=== PATIENT | male | born 1955 | race Caucasian/White ===

== ENCOUNTER 2017-04-21 11:55 | Inpatient (IN) | payer BC ==
[2017-04-21] MEDS ORDERED: RX INFO: IV CONTRAST WAS GIVEN 1 EACH MISC MISCELLANE PRN ×2 (13:00→18:23)
--- NOTE | 2017-04-21 13:20 | ED ---
Headache HPI - General Source: RN notes reviewed Mode of arrival: ambulatory Limitations: no limitations <Zack Montgomery - Last Filed: 04/21/17 14:52> <Brodie Haynes - Last Filed: 04/22/17 10:32> - General Chief Complaint: Headache Stated Complaint: Blurry Vision/Headache Time Seen by Provider: 04/21/17 12:48 - History of Present Illness Initial Comments: This a 62-year-old male presents emergency Department with chief complaint of headache, blurred vision. Patient states he's had a headache for last 2 weeks alleviated with any medication. He states it feels like a sinus headache. Patient states he woke up today and has blurred vision. He states he states he sees 2 of everything next to each Other. He states she's never had pain like this in the past. 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 Crews. Patient states that this was found based on the CT by Dr. Rouse. Patient denies any nausea, vomiting, diarrhea or constipation. Patient also complains of neck and throat swelling in which she believes are lymph nodes. He states he has not called his oncologist know what the symptoms because he believes that he does have some sinus infection. (Zack Montgomery) - Related Data Home Medications Medication Instructions Recorded Confirmed ALPRAZolam [Xanax] 0.5 mg PO HS 04/21/17 04/21/17 Aspirin 325 mg PO DAILY 04/21/17 04/21/17 FLUoxetine HCL [PROzac] 40 mg PO BID 04/21/17 04/21/17 Lisinopril [Zestril] 10 mg PO BID 04/21/17 04/21/17 Metoprolol Tartrate [Lopressor] 25 mg PO DAILY 04/21/17 04/21/17 amLODIPine [Norvasc] 10 mg PO DAILY 04/21/17 04/21/17 Allergies Allergy/AdvReac Type Severity Reaction Status Date / Time amiodarone Allergy Rash/Hives/ Verified 04/21/17 12:45 SWELLING Review of Systems ROS Other: All systems not noted in ROS Statement are negative. <Zack Montgomery - Last Filed: 04/21/17 14:52> ROS Other: All systems not noted in ROS Statement are negative. <Brodie Haynes N - Last Filed: 04/22/17 10:32> ROS Statement: Those systems with pertinent positive or pertinent negative responses have been documented in the HPI. 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 History of Any Multi-Drug Resistant Organisms: None Reported Past Surgical History: Coronary Bypass/CABG, Tonsillectomy Additional Past Surgical History / Comment(s): valve replacement, hand surgery Past Psychological History: Anxiety, Depression Smoking Status: Former smoker Past Alcohol Use History: Rare Past Drug Use History: None Reported <Zack Montgomery - Last Filed: 04/21/17 14:52> - Past Family History Father Family Medical History: Coronary Artery Disease (CAD), Hyperlipidemia Additional Family Medical History / Comment(s): cabg Mother Family Medical History: Hypertension Additional Family Medical History / Comment(s): enlarged heart <Brodie Haynes N - Last Filed: 04/22/17 10:32> General Exam Limitations: no limitations General appearance: alert, in no apparent distress Head exam: Present: atraumatic, normocephalic, normal inspection Eye exam: Present: normal appearance, PERRL, EOMI, other (Cranial nerve palsy on the left). Absent: scleral icterus, conjunctival injection, periorbital swelling ENT exam: Present: normal exam, normal oropharynx, mucous membranes moist, TM's normal bilaterally, normal external ear exam Neck exam: Present: normal inspection, full ROM. Absent: tenderness, meningismus, lymphadenopathy Respiratory exam: Present: normal lung sounds bilaterally. Absent: respiratory distress, wheezes, rales, rhonchi, stridor Cardiovascular Exam: Present: regular rate, normal rhythm, normal heart sounds. Absent: systolic murmur, diastolic murmur, rubs, gallop, clicks Neurological exam: Present: alert, oriented X3, CN II-XII intact, reflexes normal, other (Some difficulty with [id number]). Absent: motor sensory deficit Skin exam: Present: warm, dry, intact, normal color. Absent: rash <Zack Montgomery - Last Filed: 04/21/17 14:52> Course <Zack Montgomery - Last Filed: 04/21/17 14:52> <Brodie Haynes - Last Filed: 04/22/17 10:32> Vital Signs 04/21/17 04/21/17 12:31 14:17 Temperature 98.7 F Pulse Rate 104 H 88 Respiratory 18 18 Rate Blood Pressure 106/78 149/89 O2 Sat by Pulse 99 98 Oximetry - Reevaluation(s) Reevaluation #1: 04/21/17 13:19 Patient states that he has horizontal diplopia with notable cranial nerve palsy (Zack Montgomery) Medical Decision Making - Lab Data Result diagrams: 04/21/17 13:13 04/21/17 12:59 <Zack Montgomery - Last Filed: 04/21/17 14:52> - Lab Data Result diagrams: 04/21/17 13:13 04/21/17 12:59 <Brodie Haynes - Last Filed: 04/22/17 10:32> - Medical Decision Making 62-year-old male presenting with 2 weeks headache and one-day history double vision. Patient has a sixth nerve pulse 80 on the left. No proptosis. No chemosis. Patient is otherwise well-appearing. CT is obtained, does show large nasopharyngeal mass. He has history of nasopharyngeal cancer, completed radiation and chemotherapy approximately 3 months ago. Patient will be admitted for further evaluation and treatment of suspected worsening head and neck cancer. Neurology will be placed on consult for neuro deficit. Case is discussed with Dr. Crews. Patient will be admitted to internal medicine. ( Brodie Haynes) - Lab Data Lab Results 04/21/17 04/21/17 Range/Units 12:59 13:13 WBC 9.0 (3.8-10.6) k/uL RBC 4.32 (4.30-5.90) m/uL Hgb 13.2 (13.0-17.5) gm/dL Hct 43.1 (39.0-53.0) % MCV 99.9 (80.0-100.0) fL MCH 30.5 (25.0-35.0) pg MCHC 30.5 L (31.0-37.0) g/dL RDW 13.8 (11.5-15.5) % Plt Count 331 (150-450) k/uL Neutrophils % 86 % Lymphocytes % 5 % Monocytes % 7 % Eosinophils % 1 % Basophils % 0 % Neutrophils # 7.7 (1.3-7.7) k/uL Lymphocytes # 0.4 L (1.0-4.8) k/uL Monocytes # 0.6 (0-1.0) k/uL Eosinophils # 0.1 (0-0.7) k/uL Basophils # 0.0 (0-0.2) k/uL Sodium 133 L (137-145) mmol/L Potassium 5.1 (3.5-5.1) mmol/L Chloride 99 (98-107) mmol/L Carbon Dioxide 22 (22-30) mmol/L Anion Gap 12 mmol/L BUN 12 (9-20) mg/dL Creatinine 1.30 H (0.66-1.25) mg/dL Est GFR (MDRD) Af Amer >60 (>60 ml/min/1.73 sqM) Est GFR (MDRD) Non-Af 56 (>60 ml/min/1.73 sqM) Glucose 117 H (74-99) mg/dL Calcium 10.2 (8.4-10.2) mg/dL Total Bilirubin 0.7 (0.2-1.3) mg/dL AST 28 (17-59) U/L ALT 25 (21-72) U/L Alkaline Phosphatase 89 (38-126) U/L Total Protein 7.4 (6.3-8.2) g/dL Albumin 4.3 (3.5-5.0) g/dL Disposition Time of Disposition: 14:52 <Zack Montgomery - Last Filed: 04/21/17 14:52> <Brodie Haynes - Last Filed: 04/22/17 10:32> Clinical Impression: Nasopharyngeal mass, Headache, Diplopia Disposition: ADMITTED IP TO THIS HOSP Condition: Fair
[2017-04-21 13:25] LABS: Basophils % (A) 0 %; CHCM 32.2; Eosinophils # (A) 0.1 k/uL (0-0.7); Eosinophils % (A) 1 %; HCT 43.1 % (39.0-53.0); HDW 2.14; HGB 13.2 gm/dL (13.0-17.5); Luc # (Auto) 0.08; Luc % (Auto) 1; Lymphocytes # (A) 0.4 k/uL (1.0-4.8); Lymphocytes % (A) 5 %; MCH 30.5 pg (25.0-35.0); MCHC 30.5 g/dL (31.0-37.0); MCV 99.9 fL (80.0-100.0); Mean Platelet Volume 7.4; Monocytes # (A) 0.6 k/uL (0-1.0); Monocytes % (A) 7 %; Neutrophils # (A) 7.7 k/uL (1.3-7.7); Neutrophils % (A) 86 %; RBC 4.32 m/uL (4.30-5.90); RDW 13.8 % (11.5-15.5); WBC (Perox) 9.58
[2017-04-21 13:38] LABS: ALT 25 U/L (21-72); AST 28 U/L (17-59); Alkaline Phosphatase 89 U/L (38-126); Anion Gap 12 mmol/L; Blood Urea Nitrogen 12 mg/dL (9-20); Calcium 10.2 mg/dL (8.4-10.2); Carbon Dioxide 22 mmol/L (22-30); Chloride 99 mmol/L (98-107); Glucose 117 mg/dL (74-99); Non-African American GFR(MDRD) 56 (>60 ml/min/1.73 sqM); Potassium 5.1 mmol/L (3.5-5.1); Sodium 133 mmol/L (137-145); Total Bilirubin 0.7 mg/dL (0.2-1.3); Total Protein 7.4 g/dL (6.3-8.2)
--- NOTE | 2017-04-21 14:03 | CT ---
EXAMINATION TYPE: CT brain wo con DATE OF EXAM: 04/21/2017 COMPARISON: NONE HISTORY: BANUELOS, double vision, blurred vision, history of squamous cell CA of nasopharynx CT DLP: 999.8 mGycm. Automated Exposure Control for Dose Reduction was Utilized. TECHNIQUE: CT scan of the head is performed without contrast. FINDINGS: There is no acute intracranial hemorrhage, mass effect, or midline shift identified. The ventricles and sulci are within normal limits in size. The globes are intact. Old lacunar injury is seen of the right thalamus of CSF attenuation. Similarly old lacunar injury of the inferior caudate head is seen in the left that is CSF attenuation. Left torus tubarius is enlarged and there is obliteration of the fossa of Rosenmuller with prominent soft tissue in the posterior left nasopharynx likely related to patient's known nasopharyngeal carcin nataly. Heterogenous masslike region measures at least 2.8 x 1.9 cm involving the longus colli musculatu re and eroding into the clivus with soft tissue component expanding the clivus and questionable exten t into the cavernous portion of the left internal carotid artery on series 4 image 9 and 10 as well a s series 3 image 9 and 10. Soft tissue also abuts the basilar artery on these images. Left cavernous sinus thrombosis is possible given the patient's symptoms and the extension of the mass. Additional p osterior extent towards the left jugular vein is noted. Minimal mucosal thickening is seen within the left maxillary sinus. IMPRESSION: 1. No acute intracranial hemorrhage, midline shift or mass effect. 2. Large irregular masslike enhancement involving the posterior left nasopharynx and the fossa of Ros enmuller extending into the longus coli musculature and clivus with concern for extent into the maikel us and cavernous portions of the left internal carotid artery. This also abuts the basilar artery. Gi tito the patient's symptoms cavernous sinus thrombosis is possible. Additional posterior extent toward s the left jugular vein is noted. 3. Old lacunar injuries of the left caudate nucleus and right thalamus.
--- NOTE | 2017-04-21 14:10 | CT ---
EXAMINATION TYPE: CT soft tissue neck w con DATE OF EXAM: 04/21/2017 HISTORY: BANUELOS, double vision, blurred vision, history of squamous cell CA of nasopharynx COMPARISON: CT brain of the same day. CT DLP: 266.2 mGycm. Automated Exposure Control for Dose Reduction was Utilized. TECHNIQUE: CT scan of the neck is performed with IV Contrast, patient injected with 100 mL of Omnipa que 300, axial images are obtained, coronal and sagittal reformatted images are reviewed. FINDINGS: The previously described heterogenous posterior nasopharyngeal mass is difficult to accurately measur e with soft tissue prominence in the posterior nasopharynx involving the left fossa of Rosenmuller an d extending into the left longus coli musculature measuring at least 2.0 x 3.4 cm. There is erosion o f the clivus and erosion of the petrous ridge with an narrowing and focal stenosis caused by impressi on of the mass on the petrous portion and cavernous portion of the left internal carotid artery. This mass also protrudes posteriorly to abut the basilar artery and extends towards the left jugular vein . Phlegmonous changes are seen in the oropharynx with nonenlarged lymph node in the superficial mucos al space and thickening of the prevertebral space. Nonenlarged lymph nodes are also seen of the anter ior and posterior cervical chains of the neck. 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 Moderate centrilobu lar emphysema is seen within the lung apices. There is a 6 mm right apical pulmonary nodule as well a s a 3 mm right upper lobe pulmonary nodule. Multilevel degenerative changes of the cervical spine are moderate. IMPRESSION: 1. Redemonstration of an ill-defined heterogenous left lateral posterior nasopharyngeal mass eroding the clivus and petrous bone and extending into the basilar cistern abutting the basilar artery and na rrowing the petrous portion of the left internal carotid artery and cavernous portion of the left int ernal carotid artery. Venous thrombosis remains a possibility given the patient's symptoms. No arteri al occlusion. 2. Moderate centrilobular emphysematous changes, partially visualized with right upper lobe subcentim eter pulmonary nodules. Metastasis is possible. 3. Phlegmonous changes of the oropharynx, somewhat limiting evaluation for adenopathy. Nonenlarged ly mph nodes are seen of the anterior and posterior cervical chains.
--- NOTE | 2017-04-21 14:35 | CT ---
EXAMINATION TYPE: CT sinus w con DATE OF EXAM: 04/21/2017 COMPARISON: CT soft tissue neck and CT brain of the same date. HISTORY: BANUELOS, double vision, blurred vision, history of squamous cell CA of nasopharynx CT DLP: 599.8 mGycm Automated exposure control for dose reduction was used. CONTRAST: CT scan of the facial bones is performed with IV Contrast, patient injected with 100 mL of Omnipaque 300. TECHNIQUE: CT scan of the sinuses is performed without contrast, axial images are obtained, coronal r eformatted images are also reviewed. FINDINGS: There is better delineation of the posterior nasopharyngeal mass on this examination in com parison to the CT brain and CT soft tissue neck of the same date. However, this mass remains slightly ill-defined with extending from the left posterior nasopharynx, fossa of Rosenmuller, prevertebral s pace, surrounding the proximal carotid into the carotid space, eroding the clivus, extending into the prebasilar cistern, narrowing the petrous portion of the left internal carotid artery and cavernous portion of the left internal carotid artery. In craniocaudal dimension this masses difficult to measu re and appears to extend below the [id number] measuring at least 6.2 cm in craniocaudal dimension on series 7 image 46 and 3.8 cm in transverse dimension as well as at least 2.9 cm in anterior fur mixer operator ior dimension. Contralateral necrotic adenopathy is seen near the prevertebral space with lymph node measuring 9 mm in short axis and central necrosis. The left jugular vein appears diminutive in size o n series 3 image 1 distally. Erosion of the mass is better described on the CT neck and brain of the same day. Scant mucosal thick ening is seen within the maxillary sinuses and inferior polypoid left maxillary 8 mm rounded possible polyp is present. Small amount of fluid is seen within the right mastoid air cells. Right frontal si nus is hypoplastic. Ostiomeatal complexes are patent bilaterally. IMPRESSION: Large multiloculated complex left posterior nasopharyngeal mass with contralateral adenop athy of the head and neck narrowing the posterior oropharynx, rotating the clivus, extending into the basilar cistern with mass effect upon the basilar artery, extending towards the left jugular vein an d narrowing it to approximately causing it to be diminutive in caliber, and eroding the left petrous bone causing impression upon the petrous portion of the left carotid artery and cavernous portion of the left carotid artery. No gross evidence of arterial cavernous sinus thrombosis although venous thr ombosis is a possibility of the cavernous plexus or petrosal sinus. No dilation of the superior ophth almic veins.
[2017-04-21] MEDS ORDERED: ACETAMINOPHEN TAB 325 MG TAB PO PRN (14:53)
[2017-04-21] MEDS ORDERED: LORazepam 2 MG/ML INJ IV PRN (14:53)
[2017-04-21] MEDS ORDERED: NALOXONE 0.4 MG/ML 1 ML VIAL IV PRN (14:53)
[2017-04-21] MEDS ORDERED: HYDROmorphone 0.5 MG/0.5 ML SYRINGE IVP PRN (14:53)
--- NOTE | 2017-04-21 18:23 | P.CONS ---
History of Present Illness - Reason for Consult Consult date: 04/21/17 Recurrent nasopharyngeal cancer - History of Present Illness The patient is a 62-year-old white male, well known to our service. He is followed by Dr. Crews in the outpatient setting. 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 He was treated with concurrent chemoradiation with cisplatin given every 3 weeks. He received radiation under the care of Dr. Martinez. He completed treatment about 4 months ago. He had a PET scan subsequently which apparently showed a good response. (The above history is obtained from the patient, as I cannot access the office record or records from [facility] at this time) The patient came into the emergency room complaining of progressively increasing headache at the base of his skull over the past 2-3 weeks. During this time it also noted some blurring of vision, more on the left compared to the right. This was associated with double vision. He was also complaining of sinus congestion. He had CT scans of the soft tissue of the neck, brain and sinuses done. This revealed evidence of recurrent mass in the left nasopharynx , extending into the base of the brain, and down into the left upper neck. For cerebral venous sinus thrombosis. The patient was therefore admitted, and consult placed for further evaluation. Review of Systems Constitutional: Reports chronic pain, Reports fatigue Eyes: left blurred vision, left diplopia Ears: deny: decreased hearing Ears, nose, mouth and throat: Reports dysphagia (Persistent since completion of chemoradiation. no worsening), Reports nasal congestion, Reports sinus pressure Cardiovascular: Denies chest pain, Denies shortness of breath Respiratory: Denies cough Gastrointestinal: Denies abdominal pain, Denies diarrhea, Denies nausea, Denies vomiting Genitourinary: Reports as per HPI Musculoskeletal: Denies myalgias Integumentary: Denies pruritus, Denies rash Neurological: Reports double vision, Reports headaches, Denies numbness, Denies weakness Psychiatric: Denies anxiety, Denies depression Endocrine: Denies fatigue, Denies weight change Hematologic/Lymphatic: Reports as per HPI 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 History of Any Multi-Drug Resistant Organisms: None Reported Past Surgical History: Coronary Bypass/CABG, Tonsillectomy Additional Past Surgical History / Comment(s): valve replacement, hand surgery Past Psychological History: Anxiety, Depression Smoking Status: Former smoker Past Alcohol Use History: Rare Past Drug Use History: None Reported Medications and Allergies Home Medications Medication Instructions Recorded Confirmed Type ALPRAZolam [Xanax] 0.5 mg PO HS 04/21/17 04/21/17 History Aspirin 325 mg PO DAILY 04/21/17 04/21/17 History FLUoxetine HCL [PROzac] 40 mg PO BID 04/21/17 04/21/17 History Lisinopril [Zestril] 10 mg PO BID 04/21/17 04/21/17 History Metoprolol Tartrate [Lopressor] 25 mg PO DAILY 04/21/17 04/21/17 History amLODIPine [Norvasc] 10 mg PO DAILY 04/21/17 04/21/17 History Allergies Allergy/AdvReac Type Severity Reaction Status Date / Time amiodarone Allergy Rash/Hives/ Verified 04/21/17 12:45 SWELLING Physical Exam Vitals: Vital Signs Temp Pulse Resp BP Pulse Ox 04/21/17 16:50 98.1 F 91 18 134/83 99 04/21/17 14:17 88 18 149/89 98 04/21/17 12:31 98.7 F 104 H 18 106/78 99 Intake and Output 04/21/17 04/21/17 04/21/17 06:59 14:59 22:59 Other: Voiding Method Toilet Urinal Weight 63.503 kg Patient Weight 04/22/17 06:59 Weight 63.503 kg - Constitutional General appearance: no acute distress - EENT Medial deviation left eye. Lateral movement is partially resected. Suggestive of partial left lateral rectus palsy Eyes: PERRLA ENT: hearing grossly normal - Neck Neck: no lymphadenopathy Thyroid: bilateral: normal size - Respiratory Respiratory: bilateral: CTA - Cardiovascular Rhythm: regular Heart sounds: normal: S1, S2 - Gastrointestinal General gastrointestinal: normal bowel sounds, soft - Integumentary Integumentary: normal - Neurologic Neurologic: focal deficits (Left lateral rectus palsy as noted) - Musculoskeletal Musculoskeletal: generalized weakness, strength equal bilaterally - Psychiatric Psychiatric: A&O x's 3, appropriate affect Results CBC & Chem 7: 04/21/17 13:13 04/21/17 12:59 Labs: Abnormal Lab Results - Last 24 Hours (Table) 04/21/17 04/21/17 Range/Units 12:59 13:13 MCHC 30.5 L (31.0-37.0) g/dL Lymphocytes # 0.4 L (1.0-4.8) k/uL Sodium 133 L (137-145) mmol/L Creatinine 1.30 H (0.66-1.25) mg/dL Glucose 117 H (74-99) mg/dL Comments: Computed tomography scan soft tissue of neck and sinuses-report reviewed CT Scan - head: report reviewed MRI - head: pending Assessment and Plan (1) Nasopharyngeal mass Narrative/Plan: The patient has recently completed treatment for 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 Unfortunately his current presentation appears to be consistent with recurrence of the malignancy with , at least, local progression. His symptoms are attributed were to the same. Clinically he appears to have a left lateral rectus palsy which is likely responsible for his blurred vision and diplopia. Headaches are also resulting from pressure affect of the progressive tumor. - I will start the patient on IV steroids, to reduce edema/pressure and hopefully help the symptoms - Radiation oncology was contacted. I will discuss the case with to review his current scans to see if there would be a potential for additional radiation for palliation. - MRI of the brain has been ordered. Results will be reviewed when available. If the patient definitely appears to have cerebral venous sinus thrombosis, then and the correlation will be started. - He will need additional staging studies. A CT chest abdomen and pelvis will be ordered The case was discussed with the admitting service Current Visit: Yes Status: Acute Code(s): J39.2 - OTHER DISEASES OF PHARYNX SNOMED Code(s): 608575002 (2) Neoplasm related pain Narrative/Plan: The patient is currently on IV Dilaudid. This will be changed to IV morphine , and then subsequently to an oral regimen. We may be able to decrease pain medications, once steroid affect is achieved Current Visit: Yes Status: Acute Code(s): G89.3 - NEOPLASM RELATED PAIN ( ACUTE) (CHRONIC) SNOMED Code(s): 848099090
--- NOTE | 2017-04-21 20:38 | HP ---
HISTORY AND PHYSICAL PRESENTING COMPLAINT: Dizziness, double vision. HISTORY OF PRESENTING COMPLAINT: This is a very pleasant 62-year-old patient of Dr. Nicolle Daly, followed by Dr. Manoj Crews. 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 The patient now presents with increasing headaches, double vision, and noticed a fullness in the neck. CT scan in the ER did show a new soft tissue mass extending on the left side. REVIEW OF SYSTEMS: CONSTITUTIONAL: Tired. HEENT: Double vision. Headache. Neck fullness. RESPIRATORY: Mild shortness of breath. CARDIOVASCULAR: None. GASTROINTESTINAL: None. GENITOURINARY: None. MUSCULOSKELETAL: None. DERMATOLOGICAL: None. HEMATOLOGICAL: None. LYMPHATICS: None. PSYCHIATRY: Some anxiety and depression. NEUROLOGICAL: Double vision on looking to the left. PAST MEDICAL HISTORY: 1. Nasopharyngeal carcinoma, squamous cell type, treated with chemo and radiation treatment with negative PET scan 3 months ago. 2. Coronary artery disease with history of bypass. 3. Hypertension. 4. Anxiety. 5. Depression. PAST SURGICAL HISTORY: 1. Cardiac valve replacement. 2. Cardiac catheterization. 3. Tonsillectomy. 4. Aortic valve replacement. 5. Hand surgery. 6. Sinus cancer. 7. Left parotid gland tumor removed. 8. Tubes in the ears. 9. Surgery for carpal tunnel release, Dupuytren's contracture. PAST PSYCH HISTORY: Anxiety and depression. SOCIAL HISTORY: . The patient smoked for close to 40 years, about 2 packs a day, stopped about 14 years ago. The patient used to do auction of restaurant material items. HOME MEDICATIONS: 1. Lopressor 25 p.o. daily. 2. Zestril 10 mg p.o. b.i.d. 3. Prozac 40 mg p.o. b.i.d. 4. Aspirin 325 p.o. daily. 5. Xanax 0.5 p.o. at bedtime. 6. Norvasc 10 mg p.o. daily. ALLERGIES: AMIODARONE. PHYSICAL EXAMINATION: VITAL SIGNS ON PRESENTATION: Temperature 98.7, pulse 104, respiration 18, blood pressure 106/58, pulse ox 99% on room air. GENERAL APPEARANCE: Thin build. BMI 19. Sitting up, tired-appearing. EYES: Pupils equal. Conjunctivae normal. HEENT: Oral cavity normal. NECK: Some fullness of the neck. JVD unable to assess. Mass not palpable. RESPIRATORY: Effort LUNGS: Decreased breath sounds. CARDIOVASCULAR: First and second sounds normal. No edema. ABDOMEN: Soft, nontender. Liver and spleen not palpable. LYMPHATIC: No lymph node palpable in neck or axillae. PSYCHIATRY: Alert and oriented x3. Mood and affect normal. NEUROLOGICAL: Patient does not fully abduct on the left side, with double vision on that side. INVESTIGATIONS: White count 9, hemoglobin 13.2, potassium 5.1, BUN 12, creatinine 1.30. The patient had a CT scan of the brain, soft tissue neck CT and sinus CT that shows ill-defined heterogeneous left lateral posterior nasopharyngeal mass eroding the clivus and petrous bone and extending into the basilar cistern abutting the basilar artery and narrowing the petrous portion of left internal carotid artery and cavernous portion of the left internal carotid artery with the possibility of venous thrombosis; moderate centrilobular emphysematous changes and some phlegmonous changes of the oropharynx. ASSESSMENT: 1. This is a patient with known nasopharyngeal carcinoma who was treated with radiation and chemotherapy of squamous cell type with negative PET scan 3 months ago, now presents with double vision and a soft tissue mass recurring in the area. Care was discussed with Dr. Rojas. The patient will be treated with steroids. Dr. Martinez will be consulted to see if radiation helps the issue. 2. 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 3. Coronary artery disease with prior history of coronary bypass. 4. Emphysema in an ex-smoker. 5. Essential hypertension. 6. Anxiety, depression, not otherwise specified. 7. Chronic low back pain. PLAN: Home medications are resumed. Will start the patient on Decadron. I did discuss with Dr. Rojas. He said at this time the best plan of action would be to get the steroids, get opinion from Dr. Martinez and go from there. Care was discussed with the patient. Questions were answered. MMODL / IJN: [id number] /
[2017-04-21] MEDS: ALPRAZolam 0.5 MG TAB PO SCH (20:40)
[2017-04-21] MEDS: MORPHINE SULFATE 4 MG/ML SYRINGE IVP PRN (20:40)
--- NOTE | 2017-04-21 21:21 | P.CNNES ---
History of Present Illness Consult date: 04/21/17 Reason for Consult: Patient being evaluated for headache and diplopia. History of Present Illness: This patient is a 26-bouh-sqtdencn-handed white male who was brought into the emergency room today at [facility] for a 2 week history of recurrent headache pains. Apparently this morning his noticed that he was having trouble with his vision. She was very alarmed as it appeared that he had crossed eyes. He did complain of double vision this morning. He was brought into the emergency room for further evaluation. He continued to complain of blurred vision in the ER. 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 He had undergone chemotherapy with cisplatin and every 3 weeks and had 3 cycles of chemotherapy. He also underwent radiation therapy under the guidance of Dr. Orellana. He has completed 38 treatments. Apparently recently he was sent for a PET scan by his oncologist and was reportedly showing no recurrence of tumor. The patient was seen in the ER due to these current symptoms. He underwent CT scans of the brain as well as computed tomography scan of the neck region. He also had computed tomography scan of the sinuses. There was evidence on the computed tomography scan of the neck of a ill-defined left lateral posterior nasopharyngeal mass eroding the clivus and petrous bone and extending into the basilar cistern. There was also extension into the left internal carotid portion of the cavernous sinus. There was also mention of concern for venous thrombosis. The patient is being evaluated for MRI of the brain. He does have history of tubes in his ears as well as a aortic valve replacement. He will need clearance to have this MRI done tomorrow. The patient denies any fever or severe neck pain. He does not appear to be toxic at this time. He does have some neck discomfort but is able to move his neck fairly well without signs of meningeal irritation at this time. Given the CAT scan results we have recommended the patient undergo a lumbar puncture to rule out any possibility of leptomeningeal carcinomatosis as there is bony erosion of the clivus. We will arrange for a lumbar puncture to be done tomorrow morning by anesthesia. He should be taken off of aspirin so that this procedure can be done tomorrow. The patient states that his headache pain has responded somewhat to the morphine pain med. He still notices some headache and pressure feeling over the left occipital area of the head and neck region. Given the CAT scan findings it appears that there is recurrence of his squamous cell carcinoma. He will require evaluation by radiation therapy with Dr. Martinez. We will await further recommendations from both oncology and radiation oncology on further management of his condition. We would recommend that an MRI of the brain be done for this patient with and without gadolinium.depending on the results of this MRI further recommendations will be given. This case was discussed at length with the patient and his at bedside. All their questions were answered. We will continue close neurological follow-up with this patient during this admission. Neurology is now been consulted for further evaluation and recommendations. Review of Systems Constitutional: Denies chills, Denies fever Eyes: denies blurred vision, denies pain Ears, nose, mouth and throat: Denies headache, Denies sore throat Cardiovascular: Denies chest pain, Denies shortness of breath Respiratory: Denies cough Gastrointestinal: Denies abdominal pain, Denies diarrhea, Denies nausea, Denies vomiting Musculoskeletal: Denies myalgias Integumentary: Denies pruritus, Denies rash Neurological: Denies numbness, Denies weakness Psychiatric: Denies anxiety, Denies depression Endocrine: Denies fatigue, Denies weight change 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 History of Any Multi-Drug Resistant Organisms: None Reported Past Surgical History: Cardiac Valve Replacement, Heart Catheterization, Tonsillectomy Additional Past Surgical History / Comment(s): aortic valve replacement, hand surgery, sinus sx-cancer,lt parotis galnd tumor removed(benign) tubes in ears, sanaz,, sx for lt carpal tunnel release and duprytens constractures, egd, colonoscopy Past Anesthesia/Blood Transfusion Reactions: Postoperative Nausea & Vomiting ( PONV) Smoking Status: Former smoker - Past Family History Father Family Medical History: Coronary Artery Disease (CAD), Hyperlipidemia Additional Family Medical History / Comment(s): cabg Mother Family Medical History: Hypertension Additional Family Medical History / Comment(s): enlarged heart Medications and Allergies Home Medications Medication Instructions Recorded Confirmed Type ALPRAZolam [Xanax] 0.5 mg PO HS 04/21/17 04/21/17 History Aspirin 325 mg PO DAILY 04/21/17 04/21/17 History FLUoxetine HCL [PROzac] 40 mg PO BID 04/21/17 04/21/17 History Lisinopril [Zestril] 10 mg PO BID 04/21/17 04/21/17 History Metoprolol Tartrate [Lopressor] 25 mg PO DAILY 04/21/17 04/21/17 History amLODIPine [Norvasc] 10 mg PO DAILY 04/21/17 04/21/17 History Allergies Allergy/AdvReac Type Severity Reaction Status Date / Time amiodarone Allergy Rash/Hives/ Verified 04/21/17 12:45 SWELLING Physical Examination - Vital Signs Vital Signs: Vital Signs Temp Pulse Resp BP Pulse Ox 04/21/17 16:50 98.1 F 91 18 134/83 99 04/21/17 14:17 88 18 149/89 98 04/21/17 12:31 98.7 F 104 H 18 106/78 99 Intake and Output 04/21/17 04/21/17 04/21/17 06:59 14:59 22:59 Other: Voiding Method Toilet Urinal Weight 63.503 kg Patient Weight 04/22/17 06:59 Weight 63.503 kg - Constitutional General appearance: average body habitus, cooperative - EENT EENT: PERRL, mucous membranes moist - Respiratory Respiratory: lungs clear, normal breath sounds - Cardiovascular Cardiovascular: regular rate, normal S1, normal S2 Extremities: no peripheral edema bilaterally - Gastrointestinal Gastrointestinal: normoactive bowel sounds - Integumentary Integumentary: normal - Neurologic Detailed motor examination: grossly full strength in all extremities Detailed sensory examination: intact Reflex and gait examination: intact Reflexes: 1+: ankle, bicep, knee, tricep - Musculoskeletal Musculoskeletal: no pain - Psychiatric Psychiatric: mood/affect appropriate, cooperative Results - Laboratory Findings CBC and BMP: 04/21/17 13:13 04/21/17 12:59 Abnormal Lab Findings: Abnormal Labs 04/21/17 04/21/17 12:59 13:13 MCHC 30.5 L Lymphocytes # 0.4 L Sodium 133 L Creatinine 1.30 H Glucose 117 H Assessment and Plan (1) Nasopharyngeal mass Current Visit: Yes Status: Acute SNOMED Code(s): 049715931 (2) Headache Current Visit: Yes Status: Acute SNOMED Code(s): 76016455 (3) Leptomeningeal metastases Current Visit: Yes Status: Acute SNOMED Code(s): 132831064 (4) Diplopia Current Visit: Yes Status: Acute SNOMED Code(s): 69416206 Plan: this patient is a 62-year-old right-handed white male who developed sudden onset of blurred vision and diplopia early this morning. He has been complaining of recurrent and chronic headaches for the past 2 weeks. He was recently diagnosed with nasopharyngeal carcinoma early in the spring of this year. He has been followed in the oncology clinic by Dr. Crews. He was coming along well and apparently had a recent PET scan which was negative for any recurrent cancer. He was evaluated in the emergency room today for the headaches. He underwent a series of CAT scans. There is evidence of recurrent tumor in the left nasopharyngeal area. Neurology was consulted for evaluation of his headaches. Given the CAT scan results and erosion to the clivus there is concern for possibility of leptomeningeal carcinomatosis. We would recommend a lumbar puncture to be done for further evaluation for malignant cells. The patient will require oncology and radiation oncology evaluation. His overall prognosis at this time remains very guarded. Case was discussed at length with the patient and his at bedside. All their questions were answered. His overall prognosis at this time remains very guarded. Time with Patient: Greater than 30
[2017-04-21] MEDS: LISINOPRIL 10 MG TAB PO SCH (21:39)
[2017-04-21] MEDS: FLUoxetine HCL 20 MG CAP PO SCH (21:39)
[2017-04-22] MEDS: MORPHINE SULFATE 4 MG/ML SYRINGE IVP PRN ×5 (00:35→21:41)
[2017-04-22] MEDS: FAMOTIDINE 20 MG TAB PO SCH ×2 (00:38→21:43)
[2017-04-22] MEDS: DEXAMETHASONE SOD PHOSPHATE 4 MG/ML 1 ML VIAL IV SCH ×4 (01:11→17:53)
[2017-04-22] MEDS: LISINOPRIL 10 MG TAB PO SCH (08:34)
[2017-04-22] MEDS: amLODIPine 10 MG TAB PO SCH (08:34)
[2017-04-22] MEDS: METOPROLOL TARTRATE 25 MG TAB PO SCH (08:34)
[2017-04-22] MEDS: FLUoxetine HCL 20 MG CAP PO SCH ×2 (08:34→21:42)
[2017-04-22] MEDS ORDERED: ASPIRIN 325 MG TAB PO SCH (09:00)
[2017-04-22] MEDS ORDERED: ASPIRIN 81 MG PO SCH (09:00)
[2017-04-22 10:51] LABS: Basophils % (A) 0 %; CHCM 31.8; Eosinophils % (A) 0 %; HCT 39.5 % (39.0-53.0); HDW 2.06; HGB 12.3 gm/dL (13.0-17.5); Luc # (Auto) 0.03; Luc % (Auto) 1; Lymphocytes # (A) 0.3 k/uL (1.0-4.8); Lymphocytes % (A) 6 %; MCH 31.6 pg (25.0-35.0); MCHC 31.2 g/dL (31.0-37.0); MCV 101.2 fL (80.0-100.0); Macrocytosis Slight; Mean Platelet Volume 7.3; Monocytes # (A) 0.2 k/uL (0-1.0); Monocytes % (A) 4 %; Neutrophils # (A) 4.4 k/uL (1.3-7.7); Neutrophils % (A) 89 %; RDW 13.7 % (11.5-15.5); WBC (Perox) 5.12
[2017-04-22 11:05] LABS: Anion Gap 11 mmol/L; Blood Urea Nitrogen 18 mg/dL (9-20); Carbon Dioxide 28 mmol/L (22-30); Chloride 95 mmol/L (98-107); Glucose 137 mg/dL (74-99); Non-African American GFR(MDRD) >60 (>60 ml/min/1.73 sqM); Potassium 5.8 mmol/L (3.5-5.1); Sodium 134 mmol/L (137-145)
[2017-04-22] MEDS: IOHEXOL 350 MG/ML 25 ML BOTTLE (ORAL USE) PO PRN ×2 (11:52→13:38)
[2017-04-22] MEDS: LACTATED RINGERS 1,000 ML IV SCH (12:29)
[2017-04-22] MEDS ORDERED: SODIUM POLYSTYRENE SULFONATE 15 GM/60 ML BOTTLE PO STA (12:41)
[2017-04-22] MEDS ORDERED: CALCIUM GLUCONATE 1,000 MG in SODIUM CHLORIDE 0.9% 100 ML IVPB ONE (12:42)
--- NOTE | 2017-04-22 13:06 | PN ---
PROGRESS NOTE DATE OF SERVICE: 04/22/17 PRESENTING COMPLAINT: Double vision, headache. INTERVAL HISTORY: This is a patient with recent treatment for nasopharyngeal cancer which seems to have recurred. Presented with headache and double vision. Headache is better after getting steroids. The double vision is still present, worse with looking on the left side. The patient is not able to keep much down, throws up, tired, sitting over the bed. REVIEW OF SYSTEMS: Done for constitutional, cardiovascular, GI, pulmonary, neurological, relevant findings as above. CURRENT MEDICATIONS: Reviewed that include IV Decadron, IV fluids. PHYSICAL EXAMINATION: Temperature 97.8 pulse 95, respiration 14, blood pressure 108/78, pulse ox 95% room air. General appearance: Sitting up. Tired appearing. Thin. Oral cavity dry. NECK: JVD not raised. Mass not palpable. Respiratory effort lungs decreased breath sounds. Cardiovascular first and second sounds no edema. Neuro: Weakness of the, patient not able to abduct the left eye. Some fullness of the neck. INVESTIGATIONS: White count 5, hemoglobin 12.3 potassium 5.8, creatinine is 1.2. ASSESSMENT: 1. Likely recurrence of nasopharyngeal carcinoma affecting the sixth nerve. 2. Sixth nerve palsy probably tumor involvement. 3. Coronary artery disease prior history of coronary bypass. 4. Emphysema in an ex-smoker. 5. Essential hypertension. 6. Anxiety, depression, not otherwise specified. 7. Chronic low back pain. 8. Nausea and vomiting. 9. Hyperkalemia. PLAN: Will DC patient's Zestril. Give patient some Kayexalate. Neurology already on the case. Continue with steroids. MMODL / IJN: [id number] /
--- NOTE | 2017-04-22 15:09 | PN ---
PROGRESS NOTE DATE OF SERVICE: April 22, 2017. CHIEF COMPLAINT: Double vision and headaches. Champ is seen today as a followup. He continues to have headaches but it is better than it was yesterday and he continues to have double vision, but it is slightly better. Otherwise, he denies any nausea or vomiting. He is eating well and ambulating fairly well. CURRENT MEDICATION: Reviewed in his electronic record which include Tylenol 650 mg every 6 hours as needed, Xanax 0.5 mg at bedtime. Norvasc 10 mg daily, dexamethasone 4 mg IV every 6 hours. Pepcid 20 mg daily. Prozac 40 mg b.i.d. he is on IV fluids with lactated Ringers, Zestril 10 mg b.i.d., Ativan 0.5 mg IV every 6 hours as needed, Lopressor 25 mg p.o. daily, morphine sulfate 2 mg IV every 3 hours as needed, and Zofran 4 mg IV every 8 hours as needed. PHYSICAL EXAMINATION: He is alert, oriented x3. Does not appear to be in distress. VITAL SIGNS: Temperature 97.8 afebrile, pulse 95 regular, respiration 14, blood pressure 118/76. HEENT: Normocephalic, atraumatic. There is medial deviation of his left eye and he is unable to move his left eye laterally. Oral mucosa appear intact. NECK: Supple. No palpable adenopathy in his neck. Chest coarse breath sounds bilaterally. LUNGS: Clear to auscultation. Heart is regular rhythm. ABDOMEN: Soft. No tenderness. Extremities revealed no edema. LABORATORY DATA: Showed a WBC of 5.0, hemoglobin 12.3, hematocrit is 39.5, platelet 293. Sodium 134, potassium 5.8, chloride is 95, BUN is 11, creatinine is 1.20. Nasopharyngeal carcinoma suspect at least local recurrence of disease. His initial pathology report revealed was consistent with squamous cell carcinoma, but also there was evidence of a new small cell/high-grade neuroendocrine carcinoma feature. This might explain his short recurrence after completing definitive chemoradiation therapy since he received the extra complete response after treatment as was evident by a PET scan he had in February of 2017. However, a small cell/high-grade neuroendocrine carcinoma could have a short recurrence after definitive therapy. ASSESSMENT: He seems like he is clinically doing better on steroids. He was already evaluated by Neurology plan to proceed with an MRI and also he is scheduled for lumbar puncture as well, which I agree. I also called Dr. Rouse and discussed the above with him. Hopefully, repeat endoscopy and biopsy would be obtained since I am highly suspecting the patient may have a small cell carcinoma with rapid recurrence shortly after completing definitive chemoradiation therapy. If that is confirmed, then the patient will likely will be started on systemic regimen with penobscot and systemic treatment with a combination of penobscot and [employer]-16 regimen after metastatic workup obtained. Also, we are awaiting Dr. Martinez recommendation if there is any further surgery, local radiation therapy could be delivered. Continue with steroids for now and may continue with his current pain medication. Of note, his potassium seems somewhat elevated yesterday and even a little higher today. May consider holding WINNIE inhibitors as especially that his blood pressure appears to be well under control at this point in time. I did have a long discussion with the patient, his and his daughter at bedside with approximately 35 minutes was discussion and with the family and Dr. Rouse. Thank you very much. SANYA / MIN: [id number] /
--- NOTE | 2017-04-22 17:15 | CT ---
EXAMINATION TYPE: CT ChestAbdPelvis w con DATE OF EXAM: 04/22/2017 COMPARISON: CT sinuses, soft tissue neck, and brain dated 04/21/2017. HISTORY: Nasopharanygeal mass CT DLP: 477.3 mGycm. Automated Exposure Control for Dose Reduction was Utilized. CONTRAST: CT scan of the thorax, abdomen and pelvis is performed with IV Contrast, patient injected with 100 mL of Omnipaque 300. FINDINGS: LUNGS: Moderate centrilobular emphysematous changes are most pronounced at the lung apices. As noted on the prior CT soft tissue neck of 04/21/2017 there are multiple right-sided noncalcified pulmonary nodules. The first is seen on series 4 image 14 within the right upper lobe posterior medially measur ing 5 mm. The second is within the posterior right upper lobe on series 4 image 17 measuring 3 mm. Th is is also solid and noncalcified. The third solid noncalcified nodule is seen within the right upper lobe posteriorly on series 4 image 24 measuring 3 mm. The fourth solid calcified subpleural pulmona ry nodule is present within the right lower lobe measuring 5 mm on series 4 image 38. Left apical non calcified pulmonary nodule seen on series 4 image 11 measuring 5 mm. Left basilar bleb is seen. Biapi magdalene pleural-parenchymal scarring is noted. There is no pleural effusion or pneumothorax seen. The tr acheobronchial tree is patent. MEDIASTINUM: There are no greater than 1 cm hilar or mediastinal lymph nodes. The largest mediastina l lymph node is seen in the pretracheal space measuring 7 mm in short axis. No axillary or internal m ammary adenopathy is present. Post CABG changes are noted. Ascending aorta is upper limits normal siz e measuring 3.8 cm in the coronal plane. Three-vessel coronary artery calcifications are moderate. No pericardial effusion is seen. LIVER/GB: Two hepatic lesions near the dome are present on series 3 image 57 and 58 appearing to be w ithin segment 4A. The first measures 1.2 cm and is compatible with a simple cyst. The second is low-d ensity and favored to represent a simple cyst, however it is too small to characterize and Hounsfield units are not entirely compatible with a simple cyst. Additional smaller lesion within the left hepa tic lobe is seen on series 3 image 64 measuring 5 mm. Vicarious excretion of contrast is present with in the gallbladder, limiting evaluation due to the recent enhanced CTs. PANCREAS: No significant abnormality is seen. SPLEEN: No significant abnormality is seen. ADRENALS: No significant abnormality is seen. KIDNEYS: Fluid attenuated 9 mm left upper pole renal cyst is present. To small to characterize 9 mm u pper pole exophytic renal cyst is seen on sagittal series 9 image 26 and axial series 3 image 68, lik ermias representing a renal cyst. Otherwise the kidneys enhance and excrete symmetrically. Nonobstructin g right midpole 5 mm calculus is seen. BOWEL: Multiple sigmoid diverticula are present without pericolonic fat stranding. No evidence of bow el obstruction. GENITAL ORGANS: Prostate gland is enlarged and heterogenous measuring up to 5 cm containing hyperdens ity within the central zone. LYMPH NODES: No greater than 1cm abdominal or pelvic lymph nodes are appreciated. OSSEOUS STRUCTURES: Multilevel thoracic and vertebral body lucencies are contiguous with endplate and related to benign Schmorl's nodes. Multilevel degenerative endplate sclerosis, facet arthropathy, in tervertebral disc space narrowing, vacuum disc disease and anterior osteophytes are seen most pronoun naif in the lumbar spine. Postsurgical changes are seen of the sternum. No suspicious osseous lesion i s noted. VASCULATURE: The descending thoracic aorta is prominent in size throughout measuring up to 2.5 x 2.7 cm infrarenally and slightly ectatic without aneurysmal dilatation. The common iliac artery is slight ly enlarged measuring 1.8 cm. IMPRESSION: 1. Bilateral subcentimeter pulmonary nodules, concerning for metastasis given the patient's primary a denocarcinoma. Comparison with any prior outside imaging would be of benefit if available to determin e stability. The largest measure 5 mm and are below the threshold of sensitivity of PET CT. 2. No evidence of adenopathy within the chest, abdomen, or pelvis. 3. Single simple hepatic cyst and other hepatic lesions that are too small to accurately characterize . Enhanced MR abdomen may clarify the smaller lesions. 4. Multilevel degenerative changes of the osseous structures with no suspicious osseous lesion.
[2017-04-22] MEDS: ONDANSETRON 4 MG/2 ML VIAL IVP PRN (17:53)
--- NOTE | 2017-04-22 20:15 | EEG ---
ELECTROENCEPHALOGRAM REPORT DATE OF EE04/22/2017. REFERRING PHYSICIAN: Dr. Brant Pickett. CONSULTING AND INTERPRETING PHYSICIAN: Gloria Torres MD. INDICATION FOR EXAMINATION: This patient is a 62-year-old male being evaluated for headache and diplopia. The patient with known history of nasopharyngeal carcinoma with possible recurrence of tumor. AGE: 62. EEG FINDINGS: A routine 21-channel awake digital EEG recording was accomplished utilizing the 10-20 international system with bipolar and referential montages. The background activity in the most alert resting state consists of a low to medium amplitude, fairly well- developed and well-sustained 8 Hz activity over the posterior head regions. This posterior rhythm attenuates to eye opening. There is a small amount of low amplitude 18-20 Hz beta activity seen maximally over the anterior head regions. Muscle and movement artifact was observed on a few occasions during the tracing. Hyperventilation was not performed. Photic stimulation at flash frequencies of 2-30 Hz produced a good symmetrical occipital driving response. No epileptiform discharges were seen. IMPRESSION: This EEG is within normal limits for the patient's age. The EEG failed to reveal any focal, lateralized or epileptiform abnormalities. Clinical correlation is recommended. MMODL / IJN: [id number] /
[2017-04-22] MEDS: ALPRAZolam 0.5 MG TAB PO SCH (21:42)
[2017-04-23] MEDS: DEXAMETHASONE SOD PHOSPHATE 4 MG/ML 1 ML VIAL IV SCH ×5 (00:04→23:43)
[2017-04-23] MEDS: MORPHINE SULFATE 4 MG/ML SYRINGE IVP PRN ×5 (05:56→21:34)
[2017-04-23] MEDS: LACTATED RINGERS 1,000 ML IV SCH ×2 (05:58→14:17)
[2017-04-23 07:15] LABS: Anion Gap 7 mmol/L; Blood Urea Nitrogen 20 mg/dL (9-20); Carbon Dioxide 28 mmol/L (22-30); Chloride 97 mmol/L (98-107); Glucose 118 mg/dL (74-99); Non-African American GFR(MDRD) >60 (>60 ml/min/1.73 sqM); Potassium 5.2 mmol/L (3.5-5.1); Sodium 132 mmol/L (137-145)
[2017-04-23] MEDS: METOPROLOL TARTRATE 25 MG TAB PO SCH (08:20)
[2017-04-23] MEDS: amLODIPine 10 MG TAB PO SCH (08:20)
[2017-04-23] MEDS: FLUoxetine HCL 20 MG CAP PO SCH ×2 (08:20→20:32)
--- NOTE | 2017-04-23 12:17 | P.PN ---
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 The patient was seen today by Dr. Crews. He underwent a computed tomography scan of the chest abdomen and pelvis results of which are pending. The patient may require an ENT consultation for possible biopsy of this recurrent mass. Patient has been complaining of headaches and for this reason is being scheduled for MRI of the brain and lumbar puncture. MRI likely will be scheduled for Monday. We are waiting anesthesia to perform lumbar puncture which was ordered for this morning. We will have nursing staff contact anesthesia in the morning to see when the procedure may be completed. Patient should be closely monitored for possibility of leptomeningeal carcinomatosis. He does have evidence of local spread of tumor causing his new onset of diplopia. This is secondary to a left cranial nerve involvement on the left side. He was started on high-dose steroids which has helped reduce some of the inflammation in this area resulting in some improvement with his diplopia. We're waiting the MRI of the brain to be completed within without gadolinium for further details of this mass lesion. As noted we have consulted anesthesia for lumbar puncture procedure to be done as well. We will await further recommendations from oncology. The patient overall seems to be doing better today in terms of his headache being less severe and some improvement with his lateral rectus weakness in the left eye. We will continue close neurological follow-up this patient during this admission. Objective - Vital Signs Vital signs: Vital Signs Temp 97.8 F 04/22/17 08:35 Pulse 95 04/22/17 08:45 Resp 14 04/22/17 08:45 BP 118/78 04/22/17 08:35 Pulse Ox 95 04/22/17 08:35 Intake & Output 04/21/17 04/22/17 04/22/17 18:59 06:59 18:59 Intake Total 900 Output Total 240 Balance 660 Weight 63.503 kg 63.503 kg Intake: Oral 900 Output: Emesis 240 Other: Voiding Method Toilet Toilet Toilet Urinal Urinal Urinal # Voids 2 - Exam Physical Examination: PHYSICAL EXAMINATION: Patient is resting comfortably in bed. VITAL SIGNS: Blood pressure is [148/81]. Heart rate is [62]. Respiration is [16] . Temperature is [98.1]. HEENT: Head is atraumatic, neck is supple, there were no carotid bruits. CHEST: Lungs are clear to auscultation and percussion. CARDIAC: S1, S2 normal rate and rhythm. There is no murmur. ABDOMEN: Soft and nontender. Bowel sounds are present. EXTREMITIES: There is no pedal edema. Peripheral pulses are present. Neurological examination: Patient continues to demonstrate left lateral rectus muscle weakness. He has diplopia that is showing slight improvement today. There is no focal motor deficit on examination. Deep tendon reflexes are 1+ and symmetric. Plantar responses flexor bilaterally. - Labs CBC & Chem 7: 04/22/17 10:22 04/23/17 06:12 Labs: Abnormal Lab Results - Last 24 Hours (Table) 04/21/17 04/21/17 04/22/17 Range/Units 12:59 13:13 10:22 RBC 3.90 L (4.30-5.90) m/uL Hgb 12.3 L (13.0-17.5) gm/dL MCV 101.2 H (80.0-100.0) fL MCHC 30.5 L (31.0-37.0) g/dL Lymphocytes # 0.4 L 0.3 L (1.0-4.8) k/uL Sodium 133 L (137-145) mmol/L Potassium (3.5-5.1) mmol/L Chloride (98-107) mmol/L Creatinine 1.30 H (0.66-1.25) mg/dL Glucose 117 H (74-99) mg/dL 04/22/17 Range/Units 10:22 RBC (4.30-5.90) m/uL Hgb (13.0-17.5) gm/dL MCV (80.0-100.0) fL MCHC (31.0-37.0) g/dL Lymphocytes # (1.0-4.8) k/uL Sodium 134 L (137-145) mmol/L Potassium 5.8 H (3.5-5.1) mmol/L Chloride 95 L (98-107) mmol/L Creatinine (0.66-1.25) mg/dL Glucose 137 H (74-99) mg/dL Assessment and Plan (1) Nasopharyngeal mass Current Visit: Yes Status: Acute SNOMED Code(s): 887474978 (2) Headache Current Visit: Yes Status: Acute SNOMED Code(s): 13488912 (3) Leptomeningeal metastases Current Visit: Yes Status: Acute SNOMED Code(s): 523244293 (4) Diplopia Current Visit: Yes Status: Acute SNOMED Code(s): 63617456 Plan: this patient is a 62-year-old right-handed white male who developed sudden onset of blurred vision and diplopia early this morning. He has been complaining of recurrent and chronic headaches for the past 2 weeks. He was recently diagnosed with nasopharyngeal carcinoma early in the spring of this year. He has been followed in the oncology clinic by Dr. Crews. He was coming along well and apparently had a recent PET scan which was negative for any recurrent cancer. He was evaluated in the emergency room today for the headaches. He underwent a series of CAT scans. There is evidence of recurrent tumor in the left nasopharyngeal area. Neurology was consulted for evaluation of his headaches. Given the CAT scan results and erosion to the clivus there is concern for possibility of leptomeningeal carcinomatosis. We would recommend a lumbar puncture to be done for further evaluation for malignant cells. The patient will require oncology and radiation oncology evaluation. The patient was seen today by Dr. Crews. We're waiting results of the computed tomography scan of the chest abdomen and pelvis that was done earlier today. We will await further recommendations from Dr. Crews. Patient may require systemic chemotherapy. We will await his MRI and lumbar puncture studies to be done and we'll give further recommendations. His overall prognosis at this time remains very guarded. Case was discussed at length with the patient and his at bedside. All of their questions were answered. His overall prognosis at this time remains very guarded.
--- NOTE | 2017-04-23 13:04 | P.OP ---
Date of Procedure: 04/23/17 Preoperative Diagnosis: Diplopia Postoperative Diagnosis: Lateral rectus palsy left side i.e. abducens nerve palsy cranial nerve left- sided only, evidence of recurrence of nasopharyngeal carcinoma left-sided measuring approximately 2 cm Procedure(s) Performed: Flexible nasopharyngo- laryngoscopy Anesthesia: none Surgeon: Taj Rouse Pathology: none sent Condition: stable Indications for Procedure: This patient had a previous history of a nasopharyngeal carcinoma and underwent treatment. He tells me that he had headaches for the last 2 weeks of the left side extending to the back of the head and then on Monday she developed diplopia. Came to the emergency room were a workup was instituted. I've been asked to consult to rule out recurrence of his nasopharyngeal carcinoma Operative Findings: Patient has a partially 2 cm mass left nasopharynx. Description of Procedure: This patient was placed in a sitting position. A [employer] flexible nasopharyngoscope was inserted into the left naris following the floor the nose into the nasopharynx. There is evidence of a nasopharyngeal mass with hypervascularity noted. This measures approximately 2 cm. Located on the left side of the nasopharynx. No other pathology was noted of the nasopharynx oropharynx or hypopharynx. Xerostomia was obvious. Post radiation changes were noted.
--- NOTE | 2017-04-23 13:14 | P.GSCN ---
History of Present Illness Consult date: 04/23/17 Reason for Consult: Lateral rectus palsy status post treatment for nasopharyngeal carcinoma Requesting physician: Manoj Crews History of present illness: This is a very pleasant 62-year-old white male who I saw earlier this year with a left middle ear effusion. During the workup a left nasopharyngeal carcinoma was discovered and was later sent for treatment. He has completed radiotherapy. He tells me that about 2 weeks ago he developed a headache on the left posterior aspect of the head which she describes as throbbing. This headache was constant and unrelenting. He also complains as a Monday of some double vision. It's worse when he looks to the left and better when he looks to the right he tells me that it is somewhat better today. He was seen through the emergency room and radiological workup was performed where a recurrence of the nasopharyngeal carcinoma is suspect. He denies any proptosis. He denies fevers or chills. There appears to be some erosion of the clivus the left side to the cavernous sinus and carotid. I've been asked to consult to reevaluate this patient for possible recurrence. Review of Systems - Constitutional Reports anorexia, Reports chronic headaches, Reports chronic pain, Reports lethargy, Reports weakness, Denies fever, Denies night sweats - EENT Eyes: left diplopia (Lateral rectus palsy) Ears, nose, mouth and throat: Reports headache, Reports neck fullness/pressure, Denies epistaxis - Cardiovascular Denies chest pain - Respiratory Denies congestion - Gastrointestinal Denies abdominal pain - Genitourinary Denies dysuria - Integumentary Denies boils, Denies brittle nails - Neurological Reports double vision, Reports headaches, Reports weakness, Denies aphasia, Denies ataxia, Denies balance difficulties, Denies burning pain, Denies change in mentation, Denies change in smell/taste, Denies change in speech, Denies confusion, Denies memory loss, Denies paralysis, Denies tingling - Endocrine Denies cold intolerance - Hematologic/Lymphatic Denies easy bleeding 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 History of Any Multi-Drug Resistant Organisms: None Reported Past Surgical History: Cardiac Valve Replacement, Heart Catheterization, Tonsillectomy Additional Past Surgical History / Comment(s): aortic valve replacement, hand surgery, sinus sx-cancer,lt parotis galnd tumor removed(benign) tubes in ears, sanaz,, sx for lt carpal tunnel release and duprytens constractures, egd, colonoscopy Past Anesthesia/Blood Transfusion Reactions: Postoperative Nausea & Vomiting ( PONV) Smoking Status: Former smoker - Past Family History Father Family Medical History: Coronary Artery Disease (CAD), Hyperlipidemia Additional Family Medical History / Comment(s): cabg Mother Family Medical History: Hypertension Additional Family Medical History / Comment(s): enlarged heart Medications and Allergies Home Medications Medication Instructions Recorded Confirmed Type ALPRAZolam [Xanax] 0.5 mg PO HS 04/21/17 04/21/17 History Aspirin 325 mg PO DAILY 04/21/17 04/21/17 History FLUoxetine HCL [PROzac] 40 mg PO BID 04/21/17 04/21/17 History Lisinopril [Zestril] 10 mg PO BID 04/21/17 04/21/17 History Metoprolol Tartrate [Lopressor] 25 mg PO DAILY 04/21/17 04/21/17 History amLODIPine [Norvasc] 10 mg PO DAILY 04/21/17 04/21/17 History Allergies Allergy/AdvReac Type Severity Reaction Status Date / Time amiodarone Allergy Rash/Hives/ Verified 04/21/17 12:45 SWELLING Surgical - Exam Osteopathic Statement: *. No significant issues noted on an osteopathic structural exam other than those noted in the History and Physical/Consult. Vital Signs Temp Pulse Resp BP Pulse Ox 98.7 F 104 H 18 106/78 99 04/21/17 12:31 04/21/17 12:31 04/21/17 12:31 04/21/17 12:31 04/21/17 12:31 - General well developed, well nourished, chronically ill - Eyes Patient has diplopia with an impairment of the left eye to move lateral. I.e. lateral rectus palsy noted absent: ptosis, lesions, erythema, surgical pupil - ENT Head is normocephalic the face is symmetric there's no abnormal movements is no tenderness to the sinuses are mastoids there is no nodules or eruptions or parasites on scalp. The auricles are well-formed canals are filled with wax I' m unable to see the left tympanic membrane nose is patent mouth and throat dry was significant xerostomia noted. Neck shows previous radiotherapy changes or discrete tumors or masses are seen. normal pinna, normal nares, no congestion - Neck other (Postradiation changes noted) thyroid nodule: absent, lymphadenopathy: absent - Respiratory normal expansion, normal respiratory effort, clear to percussion - Integumentary Radiation inflammatory and pigmented changes noted on the right neck no rash, no growths - Neurologic Left I cannot move laterally. Lateral rectus muscle palsy noted - Musculoskeletal normal gait - Psychiatric oriented to time, oriented to person, oriented to place, speech is normal, memory intact Results - Labs 04/22/17 10:22 04/23/17 06:12 Abnormal Lab Results - Last 24 Hours (Table) 04/23/17 Range/Units 06:12 Sodium 132 L (137-145) mmol/L Potassium 5.2 H (3.5-5.1) mmol/L Chloride 97 L (98-107) mmol/L Glucose 118 H (74-99) mg/dL Diabetes panel 04/22/17 04/23/17 Range/Units 18:11 06:12 Sodium 132 L (137-145) mmol/L Potassium 5.1 5.2 H (3.5-5.1) mmol/L Chloride 97 L (98-107) mmol/L Carbon Dioxide 28 (22-30) mmol/L BUN 20 (9-20) mg/dL Creatinine 1.07 (0.66-1.25) mg/dL Glucose 118 H (74-99) mg/dL Calcium 10.0 (8.4-10.2) mg/dL Calcium panel 04/23/17 Range/Units 06:12 Calcium 10.0 (8.4-10.2) mg/dL Pituitary panel 04/22/17 04/23/17 Range/Units 18:11 06:12 Sodium 132 L (137-145) mmol/L Potassium 5.1 5.2 H (3.5-5.1) mmol/L Chloride 97 L (98-107) mmol/L Carbon Dioxide 28 (22-30) mmol/L BUN 20 (9-20) mg/dL Creatinine 1.07 (0.66-1.25) mg/dL Glucose 118 H (74-99) mg/dL Calcium 10.0 (8.4-10.2) mg/dL Adrenal panel 04/22/17 04/23/17 Range/Units 18:11 06:12 Sodium 132 L (137-145) mmol/L Potassium 5.1 5.2 H (3.5-5.1) mmol/L Chloride 97 L (98-107) mmol/L Carbon Dioxide 28 (22-30) mmol/L BUN 20 (9-20) mg/dL Creatinine 1.07 (0.66-1.25) mg/dL Glucose 118 H (74-99) mg/dL Calcium 10.0 (8.4-10.2) mg/dL Assessment and Plan (1) Abducens (sixth) nerve palsy Current Visit: Yes Status: Acute Code(s): H49.20 - SIXTH [ABDUCENT] NERVE PALSY, UNSPECIFIED EYE SNOMED Code(s): 306025221 (2) Xerostomia due to radiotherapy Current Visit: Yes Status: Acute Code(s): K11.7 - DISTURBANCES OF SALIVARY SECRETION SNOMED Code(s): 633276454 Plan: This patient has an obvious left lateral rectus palsy i.e. left abducens nerve palsy. The patient has what appears to be a recurrence of his nasopharyngeal carcinoma with involvement of the clivus. Although it is adjacent to the cavernous sinus, a cavernous sinus thrombosis is not suspect as there is no elevated white count there is no proptosis and no other symptomatology. I think the abducens nerve is affected directly by this tumor. A repeat biopsy has been requested by Dr. Crews and we will perform this tomorrow. I am unavailable but my partner Dr. Huber is agreed to this biopsy. The patient is in good spirits and this issue was discussed with him in detail. If there is any changes in his neurologic status and/or changes in his ophthalmologic condition, I've instructed the nursing staff to call me immediately. The patient is a high risk for a cavernous sinus thrombosis and low-dose heparin is recommended. Regarding this biopsy, all risks, benefits, and alternative therapies were discussed with the patient. Consent was obtained and all questions were answered. Patient understands that this will be performed by my partner Dr. Dariusz Huber.
[2017-04-23] MEDS: cefTRIAXone IN SWFI 1,000 MG/10 ML SYRINGE IVP SCH (14:17)
[2017-04-23 14:37] LABS: INR 1.1 (<1.2)
--- NOTE | 2017-04-23 15:53 | P.PN ---
Progress Note - Text Progress Note Date: 04/23/17 DATE OF SERVICE: 04/23/2017 PRESENTING COMPLAINT: Double vision, headache HISTORY OF PRESENT ILLNESS: 62-year-old male with a recent treatment for nasopharyngeal cancer which appears to have had a reoccurrence. Percent with headache and double vision. Admitted for the same. INTERVAL HISTORY: 04/23/2017: Patient seen in follow-up standing at the bedside ambulating within the room. Headache is much improved, nausea improved, no vomiting today, double vision remains but not as severe. Patient seen today by Dr. Reid Tolerating his diet eating about 50% of his meals. Moved his bowels yesterday. REVIEW OF SYSTEMS: Done for constitutional ,cardiovascular, GI, pulmonary, neurologic with relevant findings as above. CURRENT MEDICATIONS Tylenol, Xanax 0.5 mg by mouth at bedtime, Norvasc 10 mg by mouth daily, Rocephin 1000 mg IV piggyback, Decadron 4 mg IV every 6 hours, Pepcid 20 mg by mouth at bedtime, Prozac 40 mg by mouth twice a day, Ativan 0.5 mg IV every 6 hours when necessary, Lopressor 25 mg by mouth daily, morphine sulfate IV 2 mg IV push every 3 hours when necessary, Zofran 4 mg IV push every 8 hours when necessary. PHYSICAL EXAM VITAL SIGNS: Temperature 97.8, pulse 62, respiratory rate 14, blood pressure 113/71, oxygen saturation 98% on room air. GENERAL APPEARANCE: Lying in bed, not in distress. EYES: Pupils equal. Conjunctiva normal. NECK: JVD not raised. Mass not palpable. RESPIRATORY: Respiratory effort normal. Lungs clear to auscultation. CARDIOVASCULAR: First and second sounds normal. No edema. ABDOMEN: Soft. Liver and spleen not palpable. No tenderness. No mass palpable. PSYCHIATRY: Alert and oriented x3. Mood and affect normal. NEUROLOGICAL: Continues to have double vision unable to abduct the left eye, neck fullness present. INVESTIGATIONS: Sodium 132, potassium 5.2, glucose 118. Flexible nasopharyngo- laryngeal scope: Has a partially 2 cm mass left nasopharynx ASSESSMENT: -Recurrence of nasopharyngeal carcinoma affecting the sixth nerve. - nerve palsy secondary to recurrence of his nasopharyngeal carcinoma with involvement of the clivus -Coronary artery disease prior history of coronary artery bypass graft. -Emphysema and an ex-smoker. -Essential hypertension. -Anxiety, depression not otherwise specified. -Chronic low back pain. -Nausea and vomiting, improving. -Hyperkalemia, slow to respond. PLAN: Patient will undergo a biopsy of the nasopharyngeal carcinoma tomorrow with Dr. Miller. We'll continue with current medication and treatment plan as well as an additional round of Kayexalate. Plan of care discussed with the patient at bedside he is in agreement. We will follow closely. MOLD TOOLER statement: Patient was seen and examined by nurse practitioner Jackie Bustillo and all elements of the case discussed with attending Dr. Pickett
--- NOTE | 2017-04-23 15:57 | PN ---
PROGRESS NOTE DATE OF SERVICE: April 23, 2017. CHIEF COMPLAINT: Diplopia. Champ seen today as a followup. He continues to have diplopia, but his headache is better today. No nausea or vomiting. He is eating well and ambulating well. PHYSICAL EXAMINATION: He is alert, oriented x3. He does not appear to be in distress. VITAL SIGNS: Temperature 97.8, afebrile, pulse 62 and regular, respirations 14, blood pressure 115/71. HEENT: Normocephalic, atraumatic. The left eye is medially deviated. No sclerae icterus. Oral mucosa intact. NECK: Supple. Lungs are clear to auscultation. Heart is regular rhythm. ABDOMEN: Soft. No tenderness. Extremities reveal no edema and is moving all extremities appropriately. IMPRESSION: Recurrent nasopharyngeal carcinoma. At least the patient has local recurrence and has new suspicious lung nodules. 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 I am concerned that he may have progression of the small cell component leading to this rapid progression within a short time after achieving a complete response to definitive chemoradiation therapy. RECOMMENDATION: 1. I did discuss his care with Dr. Rouse. The plan for repeat biopsy tomorrow. 2. Awaiting MRI to be performed tomorrow. 3. Awaiting final decision of Dr. Martinez for possible additional radiation therapy. 4. Very likely the patient will be started on systemic treatment in the very near future with carboplatin and [employer] INS[employer]OR-16 regimen directed against small cell carcinoma. Thank you very much. MMODL / IJN: [id number] /
[2017-04-23] MEDS: ALPRAZolam 0.5 MG TAB PO SCH (20:32)
[2017-04-23] MEDS: FAMOTIDINE 20 MG TAB PO SCH (20:32)
[2017-04-23] MEDS: ONDANSETRON 4 MG/2 ML VIAL IVP PRN (20:45)
--- NOTE | 2017-04-23 20:48 | P.PN ---
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 The patient was seen today by Dr. Crews. He underwent a computed tomography scan of the chest abdomen and pelvis results of which are pending. The patient may require an ENT consultation for possible biopsy of this recurrent mass. Patient has been complaining of headaches and for this reason is being scheduled for MRI of the brain and lumbar puncture. MRI likely will be scheduled for Monday. We are waiting anesthesia to perform lumbar puncture which was ordered for this morning. We will have nursing staff contact anesthesia in the morning to see when the procedure may be completed. Patient should be closely monitored for possibility of leptomeningeal carcinomatosis. He does have evidence of local spread of tumor causing his new onset of diplopia. This is secondary to a left cranial nerve involvement on the left side. He was started on high-dose steroids which has helped reduce some of the inflammation in this area resulting in some improvement with his diplopia. We're waiting the MRI of the brain to be completed within without gadolinium for further details of this mass lesion. As noted we have consulted anesthesia for lumbar puncture procedure to be done as well. We will await further recommendations from oncology. The patient overall seems to be doing better today in terms of his headache being less severe and some improvement with his lateral rectus weakness in the left eye. Patient states that he was seen by the ENT specialist today Dr. Rouse. Apparently he did a scope today which reveals a possible lesion in the nasal sinus on the left. We will need to await biopsy reports on this finding as well. The patient is complaining of some abdominal symptoms of GI upset. This may be related to the high-dose steroids. Would recommend a proton pump inhibitor if he is not already on one. We will continue close neurological follow-up this patient during this admission. Objective - Vital Signs Vital signs: Vital Signs Temp 98.0 F 04/23/17 15:00 Pulse 60 04/23/17 15:00 Resp 18 04/23/17 15:00 BP 112/65 04/23/17 15:00 Pulse Ox 98 04/23/17 15:00 Intake & Output 04/22/17 04/23/17 04/23/17 18:59 06:59 18:59 Intake Total 625 1790 600 Output Total 120 Balance 625 1670 600 Weight 63.503 kg Intake: Intake, IV Titration 625 600 600 Amount Calcium Gluconate 1,000 100 mg In Sodium Chloride 0.9 % 100 ml @ 100 mls/hr IVPB ONCE ONE Rx#: [id number] Lactated Ringers 1,000 ml 525 600 600 @ 75 mls/hr IV .[id number] [facility] Rx#:[id number] Oral 1190 Output: Emesis 120 Other: Voiding Method Toilet Toilet Toilet Urinal # Voids 1 3 - Exam Physical Examination: PHYSICAL EXAMINATION: Patient is resting comfortably in bed. VITAL SIGNS: Blood pressure is [112/65]. Heart rate is [60]. Respiration is [18] . Temperature is [98.0]. HEENT: Head is atraumatic, neck is supple, there were no carotid bruits. CHEST: Lungs are clear to auscultation and percussion. CARDIAC: S1, S2 normal rate and rhythm. There is no murmur. ABDOMEN: Soft and nontender. Bowel sounds are present. EXTREMITIES: There is no pedal edema. Peripheral pulses are present. Neurological examination: Patient continues to demonstrate left lateral rectus muscle weakness. He has diplopia that is showing slight improvement today. There is no focal motor deficit on examination. Deep tendon reflexes are 1+ and symmetric. Plantar responses flexor bilaterally. - Labs CBC & Chem 7: 04/22/17 10:22 04/23/17 06:12 Labs: Abnormal Lab Results - Last 24 Hours (Table) 04/23/17 Range/Units 06:12 Sodium 132 L (137-145) mmol/L Potassium 5.2 H (3.5-5.1) mmol/L Chloride 97 L (98-107) mmol/L Glucose 118 H (74-99) mg/dL Assessment and Plan (1) Nasopharyngeal mass Current Visit: Yes Status: Acute SNOMED Code(s): 394112753 (2) Headache Current Visit: Yes Status: Acute SNOMED Code(s): 87244526 (3) Leptomeningeal metastases Current Visit: Yes Status: Acute SNOMED Code(s): 126781404 (4) Diplopia Current Visit: Yes Status: Acute SNOMED Code(s): 51160887 Plan: this patient is a 62-year-old right-handed white male who developed sudden onset of blurred vision and diplopia early this morning. He has been complaining of recurrent and chronic headaches for the past 2 weeks. He was recently diagnosed with nasopharyngeal carcinoma early in the spring of this year. He has been followed in the oncology clinic by Dr. Crews. He was coming along well and apparently had a recent PET scan which was negative for any recurrent cancer. He was evaluated in the emergency room today for the headaches. He underwent a series of CAT scans. There is evidence of recurrent tumor in the left nasopharyngeal area. Neurology was consulted for evaluation of his headaches. Given the CAT scan results and erosion to the clivus there is concern for possibility of leptomeningeal carcinomatosis. We would recommend a lumbar puncture to be done for further evaluation for malignant cells. The patient will require oncology and radiation oncology evaluation. The patient was seen today by Dr. Crews. We're waiting results of the computed tomography scan of the chest abdomen and pelvis that was done earlier today. We will await further recommendations from Dr. Crews. Patient may require systemic chemotherapy. We will await his MRI and lumbar puncture studies to be done and we'll give further recommendations. His overall prognosis at this time remains very guarded. Case was discussed at length with the patient and his at bedside today and all of their questions were answered. We will await further recommendations from Dr. Crews in regards to all of these recent test results. Patient also is to be seen by radiation oncology. Apparently his MRI has been cleared for procedure to be done tomorrow. We're still awaiting his lumbar puncture to be completed as well. His overall prognosis at this time remains very guarded. We will await further recommendations from Dr. Crews.
[2017-04-24] MEDS: cefTRIAXone IN SWFI 1,000 MG/10 ML SYRINGE IVP SCH ×2 (02:10→13:26)
[2017-04-24] MEDS: LACTATED RINGERS 1,000 ML IV SCH ×2 (02:10→18:28)
[2017-04-24] MEDS: MORPHINE SULFATE 4 MG/ML SYRINGE IVP PRN ×5 (02:30→20:24)
--- NOTE | 2017-04-24 05:48 | PN ---
PROGRESS NOTE DATE OF SERVICE: 04/23/2017 ATTENDING NOTE: Patient was seen and examined by me. Discussed with nurse practitioner, Ms. Bustillo. This is a patient with nasopharyngeal carcinoma, status post treatment with recurrence with headache, double vision, getting IV steroids. Headache a bit better. Seen by Dr. Rouse from ENT. The patient did have flexible nasopharyngolaryngoscopy found to have a 2 cm mass in the left nasopharynx. Repeat biopsy of this will be done. On examination, double vision on the left side and on the left side weakness. PLAN: Continue with IV Decadron. Await biopsy. MMODL / IJN: [id number] /
[2017-04-24] MEDS: DEXAMETHASONE SOD PHOSPHATE 4 MG/ML 1 ML VIAL IV SCH ×4 (07:37→23:25)
[2017-04-24] MEDS: amLODIPine 10 MG TAB PO SCH (07:44)
[2017-04-24] MEDS: METOPROLOL TARTRATE 25 MG TAB PO SCH (07:44)
[2017-04-24] MEDS: FLUoxetine HCL 20 MG CAP PO SCH ×2 (07:44→20:22)
[2017-04-24 07:47] LABS: Anion Gap 6 mmol/L; Blood Urea Nitrogen 25 mg/dL (9-20); Calcium 9.6 mg/dL (8.4-10.2); Carbon Dioxide 30 mmol/L (22-30); Chloride 99 mmol/L (98-107); Glucose 105 mg/dL (74-99); Non-African American GFR(MDRD) >60 (>60 ml/min/1.73 sqM); Sodium 135 mmol/L (137-145)
[2017-04-24 11:35] VITALS: BMI 19.0
[2017-04-24] MEDS ORDERED: IV FLUID CONTINUATION 1,000 ML IV ONE (14:47)
[2017-04-24] MEDS ORDERED: MIDAZOLAM 2 MG/2 ML VIAL ONE (15:01)
[2017-04-24] MEDS ORDERED: PROPOFOL 10 MG/ML 20 ML VIAL IV ONE (15:01)
[2017-04-24] MEDS ORDERED: ePHEDrine SULFATE/0.9% NACL/PF 50 MG/5 ML SYRINGE IV ONE (15:01)
[2017-04-24] MEDS ORDERED: SUCCINYLCHOLINE CHLORIDE 100 MG/5 ML SYR IV ONE (15:01)
[2017-04-24] MEDS ORDERED: LIDOCAINE 1% INJ 10MG/ML (20 ML MDV) ONE (15:01)
[2017-04-24] MEDS ORDERED: fentaNYL (PF) 50 MCG/ML 2 ML AMP ONE (15:01)
[2017-04-24] MEDS ORDERED: LACTATED RINGERS 1,000 ML IV ONE (15:17)
--- NOTE | 2017-04-24 15:50 | P.OP ---
Date of Procedure: 04/24/17 Preoperative Diagnosis: Left nasopharyngeal mass Postoperative Diagnosis: Same Procedure(s) Performed: Nasal endoscopy with biopsy left nasopharyngeal mass Anesthesia: RONAL Surgeon: Randy Huber Estimated Blood Loss (ml): 3 Pathology: other (Nasopharyngeal tissue) Condition: stable Disposition: PACU Indications for Procedure: This is a 62-year-old white male patient of Dr. Rouse who has a previous history of nasopharyngeal carcinoma. This was biopsied back in the spring initially and he underwent radiotherapy and chemotherapy and was doing well and according to the patient his PET scan and February was unremarkable. He started however recently having left-sided headaches and then some cranial nerve palsies and was admitted and had notable nasopharyngeal mass with erosion of the clivus and other intracranial extension. Operative Findings: Firm rounded lesion with intact mucosa left posterior nasopharynx approximate 1 cm Description of Procedure: The patient was brought in the operative suite and placed in a supine position. The patient underwent induction of general anesthesia with oral endotracheal intubation without difficulty. The patient was prepped and draped in usual aseptic fashion. Topical Afrin was placed on cottonoids bilateral nasal cavities and then removed after 5 minutes. Full 0 endoscopic nasal examination was performed bilaterally. Proceeding on the left there was a smooth rounded area of the left nasopharynx. Multiple biopsies were performed with microcup forceps. Some of this was soft and somewhat was very firm tissue. Bleeding was controlled with suction cautery. No evidence of cerebrospinal fluid leakage. Hemostasis was noted to be good and the patient was allowed to emerge from anesthesia having tolerated procedure well. Patient was extubated in the operating suite and transferred to the postop recovery area in satisfactory condition. Biopsies are pending. Primary service and Dr. Rouse will follow this as I will be out of the office starting tomorrow.
[2017-04-24] MEDS ORDERED: SENNOSIDES 8.6 MG TAB PO PRN (16:59)
--- NOTE | 2017-04-24 17:03 | P.PN ---
Progress Note - Text Progress Note Date: 04/24/17 DATE OF SERVICE: 04/24/2017 PRESENTING COMPLAINT: Double vision, headache HISTORY OF PRESENT ILLNESS: 62-year-old male with a recent treatment for nasopharyngeal cancer which appears to have had a reoccurrence. Percent with headache and double vision. Admitted for the same. INTERVAL HISTORY: 04/24/2017: Patient seen in follow-up, lying in bed. Complains of a headache today worsening. Has nausea, no vomiting. Double vision slowly improving. Plans for nasal biopsy with Dr. Miller later today. Neurology plans to do an MRI of the brain and lumbar puncture. Unable to tolerate his diet, can tolerate some liquids. Ambulatory in the room. No BM since before admission 04/23/2017: Patient seen in follow-up standing at the bedside ambulating within the room. Headache is much improved, nausea improved, no vomiting today, double vision remains but not as severe. Patient seen today by Dr. Reid Tolerating his diet eating about 50% of his meals. Moved his bowels yesterday. REVIEW OF SYSTEMS: Done for constitutional ,cardiovascular, GI, pulmonary, neurologic with relevant findings as above. CURRENT MEDICATIONS Tylenol, Xanax 0.5 mg by mouth at bedtime, Norvasc 10 mg by mouth daily, Rocephin 1000 mg IV piggyback, Decadron 4 mg IV every 6 hours, Pepcid 20 mg by mouth at bedtime, Prozac 40 mg by mouth twice a day, Ativan 0.5 mg IV every 6 hours when necessary, Lopressor 25 mg by mouth daily, morphine sulfate IV 2 mg IV push every 3 hours when necessary, Zofran 4 mg IV push every 8 hours when necessary. PHYSICAL EXAM VITAL SIGNS: Temperature 97.6, pulse 55, respiratory rate 18, blood pressure 133/75, oxygen saturation 97% on room air. GENERAL APPEARANCE: Lying in bed, ill-appearing. EYES: Pupils equal. Conjunctiva normal. NECK: JVD not raised. Mass not palpable. RESPIRATORY: Respiratory effort normal. Lungs clear to auscultation. CARDIOVASCULAR: First and second sounds normal. No edema. ABDOMEN: Soft. Liver and spleen not palpable. No tenderness. No mass palpable. PSYCHIATRY: Alert and oriented x3. Mood and affect normal. NEUROLOGICAL: Continues to have double vision unable to abduct the left eye, neck fullness present, frontal headache. INVESTIGATIONS: Sodium 135, potassium 5.0, BUN 25, creatinine 1.04. 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 -Emphysema and an ex-smoker. -Essential hypertension. -Anxiety, depression not otherwise specified. -Chronic low back pain. -Nausea and vomiting, improving. -Hyperkalemia, slow to respond. PLAN: Await nasal biopsies. Neurology plans to do an MRI and a lumbar puncture. We' ll continue with current medication and treatment plan. Plan of care discussed with the patient at bedside he is in agreement. We will follow closely. ROUTER OPERATOR PIN statement: Patient was seen and examined by nurse practitioner Jackie Bustillo and all elements of the case discussed with attending Dr. Pickett
[2017-04-24] MEDS: POLYETHYLENE GLYCOL 3350 17 GM POWD.PACK PO SCH (18:29)
--- NOTE | 2017-04-24 18:42 | P.PN ---
Subjective Progress Note Date: 04/24/17 he patient reports some improvement in his headache. Symptoms are controlled as long as he takes his morphine. Visual complaints are persistent with slight improvement. Objective - Vital Signs Vital signs: Vital Signs Temp 97.8 F 04/24/17 15:57 Pulse 67 04/24/17 16:20 Resp 16 04/24/17 16:20 BP 151/85 04/24/17 16:20 Pulse Ox 100 04/24/17 16:20 Intake & Output 04/23/17 04/24/17 04/24/17 18:59 06:59 18:59 Intake Total 658 618 5047 Output Total 25 Balance 082 512 3218 Weight 63.503 kg Intake: IV 1250 Lactated Ringers 1,000 ml 600 @ 75 mls/hr IV .[id number] [facility] Rx#:[id number] Intake, IV Titration 600 Amount Lactated Ringers 1,000 ml 600 @ 75 mls/hr IV .[id number] [facility] Rx#:[id number] Oral 120 Output: Estimated Blood Loss 25 Other: Voiding Method Toilet Toilet Toilet # Voids 3 1 1 - Constitutional General appearance: Present: no acute distress - EENT EENT Comment(s): left medial deviation of pupil - Respiratory Respiratory: bilateral: CTA - Cardiovascular Rhythm: regular Heart sounds: normal: S1, S2 - Gastrointestinal General gastrointestinal: Present: normal bowel sounds, soft - Integumentary Integumentary: Present: normal - Neurologic Neurologic: Present: focal deficits (left sixth nerve palsy) - Musculoskeletal Musculoskeletal: Present: generalized weakness, strength equal bilaterally - Psychiatric Psychiatric: Present: A&O x's 3 - Labs CBC & Chem 7: 04/22/17 10:22 04/24/17 06:58 Labs: Abnormal Lab Results - Last 24 Hours (Table) 04/24/17 Range/Units 06:58 Sodium 135 L (137-145) mmol/L BUN 25 H (9-20) mg/dL Glucose 105 H (74-99) mg/dL Assessment and Plan (1) Nasopharyngeal mass Narrative/Plan: this is felt to represent recurrence and progression of his known malignancy. The patient has had some mild symptomatic improvement with high-dose steroids and morphine. The case has been evaluated by Dr. Martinez from radiation oncology. unfortunately, given the location, there does not appear to be much scope for additional radiation. The patient is to have a biopsy with ENT today. Await results. CT scan of the chest abdomen and pelvis did not show any obvious evidence of metastasis. If biopsy shows progression with a small cell component, then the patient will be started on chemotherapy. Current Visit: Yes Status: Acute Code(s): J39.2 - OTHER DISEASES OF PHARYNX SNOMED Code(s): 495528516 (2) Neoplasm related pain Narrative/Plan: currently reasonably controlled with morphine. Current Visit: Yes Status: Acute Code(s): G89.3 - NEOPLASM RELATED PAIN ( ACUTE) (CHRONIC) SNOMED Code(s): 411910648
--- NOTE | 2017-04-24 20:21 | MR ---
EXAMINATION TYPE: MR brain wo/w con DATE OF EXAM: 04/24/2017 COMPARISON: NONE HISTORY: Headaches, diplopia TECHNIQUE: Multiplanar, multisequence images of the brain and brainstem is performed without and with IV contras t, utilizing 6 mL intravenous Gadavist . FINDINGS: On the T2 and FLAIR images there are a few areas of increased signal at the chou-white caro er junction in the right cerebral hemisphere more than the left. The largest measures 8 mm. Most of t he lesions are less than 5 mm. Total number is approximately 15. There is no hydrocephalus. Brainstem appears normal. There is no evidence of cortical infarct. There is some thinning of the corpus callosum. Sella turcica appears normal. . There is normal contrast opa cification of the venous sinuses. There is a 5 mm focus of increased signal in the left caudate nucle us related to old lacunar infarct. There is also a similar sized lacunar infarct in the right posteri or thalamus. There is a 3 x 2 cm area of irregular pathologic enhancement at the skull base on the left side. Ther e is some encroachment and narrowing of the left internal carotid artery in the petrous portion. IMPRESSION: White matter signal changes consistent with chronic small vessel ischemia and old lacunar infarcts. Cerebral atrophy. Skull based lesion on the left side consistent with malignancy that appears unchanged compared to CT scan of 04/21/2017.
[2017-04-24] MEDS: ALPRAZolam 0.5 MG TAB PO SCH (20:22)
[2017-04-24] MEDS: FAMOTIDINE 20 MG TAB PO SCH (20:22)
--- NOTE | 2017-04-24 20:39 | PN ---
PROGRESS NOTE DATE OF SERVICE: April 24, 2017. ATTENDING NOTE: Patient seen and examined by me. I discussed with nurse practitioner, Keny. This is a patient status post nasopharyngeal cancer treatment. Now has presented with headache, double vision, having headache off and on, slight improvement, not eating much, barely eating for that matter. Nausea off and on, very slight improvement in double vision. Later today patient is supposed to have a biopsy. is at the bedside, sitting up. PHYSICAL EXAMINATION: LUNGS: Decreased breath sounds. Weakness of the lateral rectus on the left side. INVESTIGATIONS: Potassium 5, BUN 25, creatinine 1.04. ASSESSMENT: New nasopharynx tumor, to have a biopsy done today. Symptoms are slow to respond. Depending on the biopsy, further course of action. Care was discussed with the patient. Family at the bedside. Prognosis is guarded. MMMARYL / MIN: [id number] /
[2017-04-25] MEDS: cefTRIAXone IN SWFI 1,000 MG/10 ML SYRINGE IVP SCH ×2 (02:34→14:03)
[2017-04-25] MEDS: MORPHINE SULFATE 4 MG/ML SYRINGE IVP PRN ×4 (02:38→19:42)
[2017-04-25] MEDS: DEXAMETHASONE SOD PHOSPHATE 4 MG/ML 1 ML VIAL IV SCH ×4 (06:11→23:53)
[2017-04-25 08:06] LABS: Anion Gap 8 mmol/L; Blood Urea Nitrogen 24 mg/dL (9-20); Calcium 9.7 mg/dL (8.4-10.2); Carbon Dioxide 26 mmol/L (22-30); Chloride 99 mmol/L (98-107); Glucose 117 mg/dL (74-99); Non-African American GFR(MDRD) >60 (>60 ml/min/1.73 sqM); Potassium 4.5 mmol/L (3.5-5.1); Sodium 133 mmol/L (137-145)
[2017-04-25] MEDS: FLUoxetine HCL 20 MG CAP PO SCH ×2 (08:10→20:46)
[2017-04-25] MEDS: amLODIPine 10 MG TAB PO SCH (08:10)
[2017-04-25] MEDS: METOPROLOL TARTRATE 25 MG TAB PO SCH (08:10)
[2017-04-25] MEDS: LACTATED RINGERS 1,000 ML IV SCH ×4 (09:24→19:42)
--- NOTE | 2017-04-25 10:20 | P.PCN ---
Date of Procedure: 04/25/17 Surgeon: Garland Benson Pathology: none sent Condition: stable Disposition: PACU Description of Procedure: PREOPERATIVE DIAGNOSIS: 1-r/o MS, leptomeningeal carcinomatosis POSTOPERATIVE DIAGNOSIS: same PROCEDURE: Diagnostic lumbar puncture ANESTHESIA: Local with 1% lidocaine EBL: Minimal PROCEDURE INDICATION: The patient is a 62-year-old male with persistent headaches and diplopia. There is concern for demyelinating disease vs. spinal metastasis given his history of nasal cancer, for which he is to soon undergo chemotherapy, and LP will be done for diagnostic purposes as ordered by neurology service. MRI reviewed. No use of blood thinners. PROCEDURE DESCRIPTION / TECHNIQUE: The patient was seen and identified in the preoperative area. Risks, benefits, complications, and alternatives were discussed with the patient, including but not limited to bleeding, infection, nerve damage, allergic reactions to medications, and incomplete pain relief. The patient agreed to proceed with the procedure and signed the consent after all questions were answered. Vital signs were stable. Patient was taken to the procedure room and time out was completed to confirm patient position, procedure, area of pain, and allergies. The patient was placed in the sitting position on procedure table with help from nursing staff. The lumbosacral area was prepped and draped in the usual sterile fashion. Vital signs were closely monitored during the procedure. After localization with 1% lidocaine, a 22-gauge 3.5-inch spinal needle was placed in the L4-L5 interspace. Stylet was removed and clear cerebrospinal fluid was obtained on the first attempt. 16 ml CSF was removed and put into four tubes. COMPLICATIONS: None COMMENTS: None DISPOSITION / PLANS: The patient was placed in a supine position and transferred back to his hospital room in a stable condition for observation. There was no evidence of lower extremity motor or sensory deficit after the procedure. Patient will return to the care of the hospitalists and neurology service. Please call back with any further questions.
--- NOTE | 2017-04-25 12:01 | P.PN ---
Progress Note - Text Progress Note Date: 04/25/17 DATE OF SERVICE: 04/25/2017 PRESENTING COMPLAINT: Double vision, headache HISTORY OF PRESENT ILLNESS: 62-year-old male with a recent treatment for nasopharyngeal cancer which appears to have had a reoccurrence. Percent with headache and double vision. Admitted for the same. INTERVAL HISTORY: 04/25/2017: Patient seen in follow-up lying in bed, continues to have a headache. Tolerating his diet no nausea or vomiting. Double vision slow to improve. Lumbar puncture scheduled for this morning, no longer candidate for radiation therapy, only chemotherapy. Considering a second opinion. 04/24/2017: Patient seen in follow-up, lying in bed. Complains of a headache today worsening. Has nausea, no vomiting. Double vision slowly improving. Plans for nasal biopsy with Dr. Miller later today. Neurology plans to do an MRI of the brain and lumbar puncture. Unable to tolerate his diet, can tolerate some liquids. Ambulatory in the room. No BM since before admission 04/23/2017: Patient seen in follow-up standing at the bedside ambulating within the room. Headache is much improved, nausea improved, no vomiting today, double vision remains but not as severe. Patient seen today by Dr. Reid Tolerating his diet eating about 50% of his meals. Moved his bowels yesterday. REVIEW OF SYSTEMS: Done for constitutional ,cardiovascular, GI, pulmonary, neurologic with relevant findings as above. CURRENT MEDICATIONS Tylenol, Xanax 0.5 mg by mouth at bedtime, Norvasc 10 mg by mouth daily, Rocephin 1000 mg IV piggyback, Decadron 4 mg IV every 6 hours, Pepcid 20 mg by mouth at bedtime, Prozac 40 mg by mouth twice a day, Ativan 0.5 mg IV every 6 hours when necessary, Lopressor 25 mg by mouth daily, morphine sulfate IV 2 mg IV push every 3 hours when necessary, Zofran 4 mg IV push every 8 hours when necessary. MiraLAX, Senokot PHYSICAL EXAM VITAL SIGNS: Temperature 97.2, pulse 67, respiratory rate 16, blood pressure 116/79, oxygen saturation 97%. GENERAL APPEARANCE: Lying in bed, appears comfortable. EYES: Pupils equal. Conjunctiva normal. NECK: JVD not raised. Mass not palpable. RESPIRATORY: Respiratory effort normal. Lungs clear to auscultation. CARDIOVASCULAR: First and second sounds normal. No edema. ABDOMEN: Soft. Liver and spleen not palpable. No tenderness. No mass palpable. PSYCHIATRY: Alert and oriented x3. Mood and affect normal. NEUROLOGICAL: Continues to have double vision unable to abduct the left eye, neck fullness present, frontal headache. INVESTIGATIONS:Sodium 135, potassium 5.0, BUN 25, creatinine 1.04. 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 -Emphysema and an ex-smoker. -Essential hypertension. -Anxiety, depression not otherwise specified. -Chronic low back pain. -Nausea and vomiting, improving. -Hyperkalemia, slow to respond. PLAN: Await nasal biopsies and lumbar puncture results. Due to the location of the patient's cancer he is not a candidate for radiation only chemotherapy. Interested in seeking a second opinion. We'll continue with current medication and treatment plan. Plan of care discussed with the patient at bedside he is in agreement. We will follow closely. STOCKKEEPER statement: Patient was seen and examined by nurse practitioner Jackie Bustillo and all elements of the case discussed with attending Dr. Pickett
--- NOTE | 2017-04-25 15:58 | PN ---
PROGRESS NOTE DATE OF SERVICE: 04/25/17 ATTENDING NOTE: Patient seen and examined by me. I discussed with my nurse practitioner, Ms. Bustillo. The headache is better. The patient did tolerate his breakfast today. Did have a lumbar puncture done. Per patient, Dr. Martinez said the patient is not a candidate for any more local radiation. EXAM: Lying in bed, tired-appearing, afebrile. Blood pressure is 144/78, pulse ox 97% on room air. Weakness of the left lateral rectus nerve. PLAN: Possible resurgence of nasopharyngeal carcinoma, status post biopsy. The patient states he may want to get a second opinion. In the meantime await input from Dr. Rojas and Neurology. MMODL / IJN: [id number] /
--- NOTE | 2017-04-25 16:33 | P.PN ---
Subjective Progress Note Date: 04/25/17 the patient states that his symptoms are overall stable. Vision continues to be blurry. Headache is controlled with pain medications. Objective - Vital Signs Vital signs: Vital Signs Temp 97.9 F 04/25/17 14:35 Pulse 66 04/25/17 14:35 Resp 16 04/25/17 14:35 BP 149/85 04/25/17 14:35 Pulse Ox 97 04/25/17 14:35 Intake & Output 04/24/17 04/25/17 04/25/17 18:59 06:59 18:59 Intake Total 1250 863 Output Total 25 Balance 1225 863 Weight 63.503 kg 63.503 kg Intake: IV 1250 600 Lactated Ringers 1,000 ml 600 600 @ 75 mls/hr IV .[id number] [facility] Rx#:[id number] Intake, IV Titration 263 Amount Lactated Ringers 1,000 ml 263 @ 75 mls/hr IV .[id number] [facility] Rx#:[id number] Output: Estimated Blood Loss 25 Other: Voiding Method Toilet Toilet Toilet # Voids 1 1 - Constitutional General appearance: Present: no acute distress - EENT Eyes: Present: PERRLA ENT: Present: normal oropharynx - Respiratory Respiratory: bilateral: CTA - Cardiovascular Rhythm: regular Heart sounds: normal: S1, S2 - Gastrointestinal General gastrointestinal: Present: normal bowel sounds, soft - Integumentary Integumentary: Present: normal - Neurologic Neurologic: Present: focal deficits (left sixth cranial nerve palsy) - Musculoskeletal Musculoskeletal: Present: generalized weakness, strength equal bilaterally - Psychiatric Psychiatric: Present: A&O x's 3 - Labs CBC & Chem 7: 04/22/17 10:22 04/25/17 07:05 Labs: Abnormal Lab Results - Last 24 Hours (Table) 04/25/17 Range/Units 07:05 Sodium 133 L (137-145) mmol/L BUN 24 H (9-20) mg/dL Glucose 117 H (74-99) mg/dL Assessment and Plan (1) Nasopharyngeal mass Narrative/Plan: the patient had a repeat biopsy with ENT done yesterday. Pathology is pending. Assuming that the pathology confirms progression of malignancy, as clinically suspected, appropriate systemic therapy will be prescribed. The case was discussed with radiation oncology, who reviewed the patient's films. Unfortunately there does not appear to be a scope for additional radiation. Current Visit: Yes Status: Acute Code(s): J39.2 - OTHER DISEASES OF PHARYNX SNOMED Code(s): 328347159 (2) Neoplasm related pain Narrative/Plan: patient's symptoms are controlled with current regimen. He is being seen by the pain service. Current Visit: Yes Status: Acute Code(s): G89.3 - NEOPLASM RELATED PAIN ( ACUTE) (CHRONIC) SNOMED Code(s): 659326304
[2017-04-25] MEDS: ALPRAZolam 0.5 MG TAB PO SCH (20:46)
[2017-04-25] MEDS: FAMOTIDINE 20 MG TAB PO SCH (20:46)
[2017-04-25] MEDS: ONDANSETRON 4 MG/2 ML VIAL IVP PRN (20:57)
[2017-04-26] MEDS: MORPHINE SULFATE 4 MG/ML SYRINGE IVP PRN ×3 (00:50→11:10)
[2017-04-26] MEDS: cefTRIAXone IN SWFI 1,000 MG/10 ML SYRINGE IVP SCH (02:38)
[2017-04-26] MEDS: DEXAMETHASONE SOD PHOSPHATE 4 MG/ML 1 ML VIAL IV SCH ×2 (05:26→11:10)
[2017-04-26] MEDS: LACTATED RINGERS 1,000 ML IV SCH (05:26)
[2017-04-26 08:31] LABS: Anion Gap 8 mmol/L; Blood Urea Nitrogen 22 mg/dL (9-20); Calcium 9.7 mg/dL (8.4-10.2); Carbon Dioxide 28 mmol/L (22-30); Chloride 98 mmol/L (98-107); Glucose 111 mg/dL (74-99); Non-African American GFR(MDRD) >60 (>60 ml/min/1.73 sqM); Potassium 4.8 mmol/L (3.5-5.1); Sodium 134 mmol/L (137-145)
[2017-04-26 08:33] VITALS: BP 131/83; PULSE 67; RESP 18; TEMP 98.1
[2017-04-26] MEDS: amLODIPine 10 MG TAB PO SCH (08:41)
[2017-04-26] MEDS: FLUoxetine HCL 20 MG CAP PO SCH (08:41)
[2017-04-26] MEDS: METOPROLOL TARTRATE 25 MG TAB PO SCH (08:41)
[2017-04-26] MEDS: POLYETHYLENE GLYCOL 3350 17 GM POWD.PACK PO SCH (08:41)
[2017-04-26 12:04] LABS: Glucose,CSF 87 mg/dL (40-70)
[2017-04-26 13:31] LABS: Appearance,CSF Clear
[2017-04-26 13:32] LABS: Red Blood Cell, CSF Crenated 0 %; Red Blood Cell, CSF Fresh 100 %
--- NOTE | 2017-04-26 22:44 | DS ---
DISCHARGE SUMMARY DATE OF ADMISSION: April 21, 2017. DATE OF DISCHARGE: April 26, 2017 FINAL DIAGNOSES: 1. Nasopharyngeal tumor recurrence biopsy pending. 2. Coronary artery disease prior history of coronary artery bypass. 3. Emphysema in an ex-smoker. 4. Essential hypertension. 5. Anxiety, depression, not otherwise specified. 6. Chronic low back pain. 7. Hyperkalemia. 8. Acute renal failure present on admission probably from dehydration, prerenal, improved. 9. 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 10. CONSULTATION: Dr. Nina Torres from neurology. Dr. Crews from Oncology, Dr. Rouse from ENT. HOSPITAL COURSE: This is a very pleasant gentleman Dr. Crews diagnosis of nasopharyngeal cancer, of this year did get chemotherapy radiation and 3 months ago had a negative PET scan. The patient now presents with increasing headache, double vision. The patient was found to have recurrence of a nasopharyngeal mass. Biopsy of this was carried out, the results of which are pending. Lumbar puncture also was done with CSF fluid came back negative for any malignant cells. Dr. Rojas did speak with radiation. Patient not a candidate for any further radiation and probably need outpatient chemotherapy. The patient has double vision because of lack of left lateral rectus involvement. DISCHARGE MEDICATIONS: 1. Xanax 0.5 p.o. q.h.s. 2. Prozac 40 mg p.o. b.i.d. 3. Zestril 10 mg p.o. b.i.d. 4. Lopressor 25 p.o. daily. 5. Norvasc 10 mg p.o. daily. 6. Pepcid 20 mg p.o. q.h.s. 7. Roxanol 0.5 mL q.4h p.r.n. 8. Zofran 4 mg q.8h p.r.n. 9. MiraLAX 17 g p.o. Monday, Monday and Monday. Follow up with Dr. Nicolle Daly in 2 to 3 days, Dr. Torres on 06/02/17, Dr. Manoj Crews on May 02, 2017. EXAMINATION: Lungs decreased breath sounds. Cardiovascular first and second sounds normal. Double vision especially on the left side. Copy to Dr. Nicolle Daly. MMODL / IJN: [id number] /
== END 2017-04-26 14:03 | disposition home or self-care (01) | DRG 147 ==
LOC: EC 11:55 → 5MS5E 14:56 → 5ONC 16:05
PROVIDERS: ADMIT Hospitalist; ATTEND Hospitalist
PROC: 0CJY8ZZ Inspection of Mouth and Throat, Via Natural or Artificial Opening Endoscopic (ICD-10-PCS; principal; 2017-04-23)
PROC: 09BN8ZX Excision of Nasopharynx, Via Natural or Artificial Opening Endoscopic, Diagnostic (ICD-10-PCS; 2017-04-24 12:15)
PROC: 009U3ZX Drainage of Spinal Canal, Percutaneous Approach, Diagnostic (ICD-10-PCS; 2017-04-25)
DX: C11.9 Malignant neoplasm of nasopharynx, unspecified (principal); C79.49 Secondary malignant neoplasm of other parts of nervous system; N17.9 Acute kidney failure, unspecified; H49.02 Third [oculomotor] nerve palsy, left eye; H49.20 Sixth [abducent] nerve palsy, unspecified eye; E86.0 Dehydration; E87.5 Hyperkalemia; F32.9 Major depressive disorder, single episode, unspecified; Z79.899 Other long term (current) drug therapy; Z79.82 Long term (current) use of aspirin; F41.9 Anxiety disorder, unspecified; G89.3 Neoplasm related pain (acute) (chronic); I10 Essential (primary) hypertension; I25.10 Atherosclerotic heart disease of native coronary artery without angina pectoris; J43.9 Emphysema, unspecified; K11.7 Disturbances of salivary secretion; Z82.49 Family history of ischemic heart disease and other diseases of the circulatory system; Z85.22 Personal history of malignant neoplasm of nasal cavities, middle ear, and accessory sinuses; Z87.891 Personal history of nicotine dependence; Z92.3 Personal history of irradiation; Z95.1 Presence of aortocoronary bypass graft; Z95.2 Presence of prosthetic heart valve; M54.5 Low back pain; D3A.8 Other benign neuroendocrine tumors
CPT/HCPCS: 36415; 62270; 70450; 70487; 70491; 70553; 71260; 74177; 80048; 80053; 82945; 84132; 84157; 85025; 85610; 87070; 87205; 88108; 88305; 88341; 88342; 89050; 95819; 99285

== ENCOUNTER 2017-07-27 14:06 | Inpatient (IN) | payer BC, MEDICAID ==
[2017-07-27] MEDS ORDERED: HYDROmorphone 0.5 MG/0.5 ML SYRINGE IVP STA ×2 (14:21→16:58)
[2017-07-27] MEDS ORDERED: SODIUM CHLORIDE 0.9% 1,000 ML IV STA (14:21)
[2017-07-27] MEDS ORDERED: ONDANSETRON 4 MG/2 ML VIAL IVP STA (14:21)
--- NOTE | 2017-07-27 14:47 | ED ---
Fall HPI - General Chief Complaint: Fall Stated Complaint: Poss Broken Leg Time Seen by Provider: 07/27/17 14:15 Source: patient Mode of arrival: EMS - History of Present Illness Initial Comments: This 62-year-old white male presents with a complaint of a fall and right leg pain. He states that he was walking when he felt very dizzy, fell to the ground , and injured his right leg. He is complaining of pain just proximal to the right knee. He does present via EMS and received 100 g of fentanyl prior to arrival with some mild relief. He has some pain into his knee and very slight pain into his right hip. He denies any other injuries. He states that he did not hit his head, suffer any neck injuries, or have any back pain. He is a cancer patient. He apparently has cancer of his throat nasopharyngeal region. He is undergone radiation therapy and is currently on chemotherapy. He denies any known bony metastases. He denies any chest pain, abdominal pain or shortness of breath. No fever or chills. No other complaints or modifying factors. He still rates his pain at approximately 7 of 10 in severity. - Related Data Home Medications Medication Instructions Recorded Confirmed FLUoxetine HCL [PROzac] 40 mg PO BID 04/21/17 07/27/17 ALPRAZolam [Xanax] 1 mg PO DAILY PRN 07/27/17 07/27/17 Levothyroxine Sodium [Synthroid] 25 mcg PO DAILY 07/27/17 07/27/17 Morphine Sulfate [Ms Contin] 15 mg PO Q12HR 07/27/17 07/27/17 Ondansetron HCl [Zofran] 8 mg PO BID PRN 07/27/17 07/27/17 Polyethylene Glycol 3350 [Miralax] 17 gm PO Q48H 07/27/17 07/27/17 Sennosides [Senokot] 8.6 mg PO Q48H 07/27/17 07/27/17 Allergies Allergy/AdvReac Type Severity Reaction Status Date / Time amiodarone Allergy Rash/Hives/ Verified 07/27/17 15:07 SWELLING Review of Systems ROS Statement: Those systems with pertinent positive or pertinent negative responses have been documented in the HPI. ROS Other: All systems not noted in ROS Statement are negative. 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 History of Any Multi-Drug Resistant Organisms: None Reported Past Surgical History: Cardiac Valve Replacement, Heart Catheterization, Tonsillectomy Additional Past Surgical History / Comment(s): aortic valve replacement, hand surgery, sinus sx-cancer,lt parotis galnd tumor removed(benign) tubes in ears, sanaz,, sx for lt carpal tunnel release and duprytens constractures, egd, colonoscopy Past Anesthesia/Blood Transfusion Reactions: Postoperative Nausea & Vomiting ( PONV) Past Psychological History: Anxiety, Depression Smoking Status: Former smoker Past Alcohol Use History: Rare Past Drug Use History: Marijuana - Past Family History Father Family Medical History: Coronary Artery Disease (CAD), Hyperlipidemia Additional Family Medical History / Comment(s): cabg Mother Family Medical History: Hypertension Additional Family Medical History / Comment(s): enlarged heart General Exam - General Exam Comments Initial Comments: GENERAL: The patient appears very malnourished and cachectic. VITAL SIGNS: Heart rate, blood pressure, respiratory rate reviewed as recorded in nurse's notes. EYES: Pupils are round and reactive. Extraocular movements are intact. No conjunctival / lid redness or swelling. ENT: No external evidence of injury, swelling, or ecchymosis. Airway is patent. Throat is clear. NECK: Nontender. No swelling or evidence of injury. No subcutaneous emphysema. Trachea is midline. No thyroid mass. HEART: Regular rate and rhythm. Good peripheral pulses. LUNGS/CHEST: Breath sounds clear and equal bilaterally. No rales, rhonchi, or wheezes. No ecchymosis, subcutaneous emphysema, or tenderness. ABDOMEN: Abdomen soft without tenderness. No palpable masses or organomegaly. No peritoneal signs. No abdominal wall swelling or ecchymosis. A PEG tube is present. EXTREMITIES: There is tenderness and swelling noted to the right distal femur. There is no significant tenderness over the right hip or right knee. Normal muscle tone and function. No thoracolumbar tenderness. NEUROLOGIC: Sensation is grossly intact. Cranial nerve exam reveals face is symmetrical, tongue is midline, speech is clear. SKIN: No abrasions or ecchymosis is noted. No induration or masses noted. Good capillary refill noted. Good pedal pulses noted. PSYCHIATRIC: Alert and oriented. Appropriate behavior and judgment. Limitations: no limitations Course Vital Signs 07/27/17 14:09 Temperature 96.9 F L Pulse Rate 85 Respiratory 21 Rate Blood Pressure 118/65 O2 Sat by Pulse 95 Oximetry Medical Decision Making - Medical Decision Making The patient is seen and examined. All diagnostics are reviewed. The patient receives Dilaudid 1 mg IV. He receives some mild fluid hydration. Zofran also was given intravenously. The EKG shows a normal sinus rhythm at a rate of 77. There is no acute ST-T wave changes noted. The OR and a bolus 200, QRS duration is 70, and the QTc interval is 473. The patient's labs do show significant anemia, leukocytosis, and thrombocytosis. This is likely consistent with his significant/stage IV cancer. The patient's x-rays show a pathologic distal right femur fracture with displacement and some angulation. He also has an x-ray done which does not show any acute significant process. The AP pelvis does not show any acute processes. The right knee x-ray does not show any acute process other than the distal femur fracture. The case is discussed with the orthopedic physician on-call and he recommends transfer to an orthopedic oncologist. The case is discussed with the patient's oncologist, Dr. De Oliveira at the [facility]. His pager number is [phone] to [phone] with extension [phone]. He relates that the patient does not responding well to current treatment. He feels strongly that the patient needs to go into hospice care and would recommend staying at our facility with a hospice consult. A discussion was held with the patient and family in this regard and he does elect to go the hospice route. He was placed in a long leg Ortho-Glass 5 inch splint with padding. He tolerated this quite well. He received another Dilaudid IV injection. The case will be discussed with internal medicine in the near future. Hospice consult will be placed. - Lab Data Result diagrams: 07/27/17 15:24 07/27/17 15:24 Lab Results 07/27/17 07/27/17 Range/Units 15:24 15:24 WBC 24.2 H (3.8-10.6) k/uL RBC 2.89 L (4.30-5.90) m/uL Hgb 8.6 L (13.0-17.5) gm/dL Hct 27.7 L (39.0-53.0) % MCV 96.0 (80.0-100.0) fL MCH 29.6 (25.0-35.0) pg MCHC 30.9 L (31.0-37.0) g/dL RDW 16.0 H (11.5-15.5) % Plt Count 994 H* (150-450) k/uL Neutrophils % (Manual) 90 % Band Neutrophils % 1 % Lymphocytes % (Manual) 2 % Monocytes % (Manual) 7 % Neutrophils # (Manual) 22.00 H (1.3-7.7) k/uL Lymphocytes # (Manual) 0.48 L (1.0-4.8) k/uL Monocytes # (Manual) 1.69 H (0-1.0) k/uL Nucleated RBCs 0 (0-0) /100 WBC Polychromasia Present Hypochromasia Slight Anisocytosis Slight Macrocytosis Slight Sodium 134 L (137-145) mmol/L Potassium 4.4 (3.5-5.1) mmol/L Chloride 95 L (98-107) mmol/L Carbon Dioxide 28 (22-30) mmol/L Anion Gap 11 mmol/L BUN 23 H (9-20) mg/dL Creatinine 0.68 (0.66-1.25) mg/dL Est GFR (MDRD) Af Amer >60 (>60 ml/min/1.73 sqM) Est GFR (MDRD) Non-Af >60 (>60 ml/min/1.73 sqM) Glucose 128 H (74-99) mg/dL Calcium 9.3 (8.4-10.2) mg/dL Total Bilirubin 0.3 (0.2-1.3) mg/dL AST 29 (17-59) U/L ALT 20 L (21-72) U/L Alkaline Phosphatase 118 (38-126) U/L Total Protein 6.2 L (6.3-8.2) g/dL Albumin 3.2 L (3.5-5.0) g/dL Disposition Clinical Impression: Fall, Closed right femoral fracture, Nasopharyngeal cancer, Dizziness, Malnourished, Pathologic fracture, Leukocytosis, Anemia, Thrombocytosis, Meningeal cancer, Bone metastases Disposition: ADMITTED IP TO THIS HOSP Condition: Poor Referrals: Nicolle Daly DO [Primary Care Provider] - 1-2 days Time of Disposition: 17:50
[2017-07-27 15:48] LABS: Anisocytosis Slight; HCT 27.7 % (39.0-53.0); HGB 8.6 gm/dL (13.0-17.5); Hypochromasia Slight; MCH 29.6 pg (25.0-35.0); MCHC 30.9 g/dL (31.0-37.0); Macrocytosis Slight; Mean Platelet Volume 8.1; RBC 2.89 m/uL (4.30-5.90); WBC 24.2 k/uL (3.8-10.6)
[2017-07-27 16:10] LABS: ALT 20 U/L (21-72); AST 29 U/L (17-59); Albumin 3.2 g/dL (3.5-5.0); Alkaline Phosphatase 118 U/L (38-126); Anion Gap 11 mmol/L; Blood Urea Nitrogen 23 mg/dL (9-20); Calcium 9.3 mg/dL (8.4-10.2); Carbon Dioxide 28 mmol/L (22-30); Chloride 95 mmol/L (98-107); Glucose 128 mg/dL (74-99); Potassium 4.4 mmol/L (3.5-5.1); Sodium 134 mmol/L (137-145); Total Bilirubin 0.3 mg/dL (0.2-1.3); Total Protein 6.2 g/dL (6.3-8.2)
[2017-07-27 16:13] LABS: Band Neutrophils % 1 %; Lymphocytes # (M) 0.48 k/uL (1.0-4.8); Monocytes # (M) 1.69 k/uL (0-1.0); Neutrophils % (M) 90 %; Nucleated Red Blood Cells 0 /100 WBC (0-0); Platelet Count 994 k/uL (150-450); Polychromasia Present; Total Cells Counted 100
--- NOTE | 2017-07-27 16:23 | XR ---
Right knee HISTORY: Trauma and pain 3 views of the right knee There is a distal oblique metadiaphyseal laterally displaced fracture of the right femur. Questionabl e associated endosteal lucency at the distal femur. There is no dislocation. Vascular calcifications are present. IMPRESSION: Fracture, consider pathologic fracture
--- NOTE | 2017-07-27 16:24 | XR ---
Right femur HISTORY: Fracture, stage IV carcinoma 2 views of the right femur submitted on 5 images and correlated to right knee same date The patient's previously described distal metadiaphyseal right femoral fracture with possible associa lima abnormal underlying bone suggestive of pathologic fracture is again noted. Question abnormal bone density in the proximal femur additionally. Vascular calcifications are present. IMPRESSION: Findings suspicious for pathologic fracture through the distal right femur.
--- NOTE | 2017-07-27 16:26 | XR ---
AP pelvis HISTORY: Trauma and pain Single frontal view of the pelvis Exam correlated to right humerus same date Patient is rotated. Question decreased bone mineralization in the proximal femurs, findings could be technical. There is no fracture or dislocation evident. Degenerative disc changes are present in the visualized spine. Bowel gas may obscure detail in the pelvis. There are vascular calcifications noted . IMPRESSION: Consider bone scan for better evaluation of possible abnormal bone density in patient wit h known stage IV carcinoma. No acute fracture or dislocation.
--- NOTE | 2017-07-27 16:29 | XR ---
EXAMINATION TYPE: XR chest 1V DATE OF EXAM: 07/27/2017 COMPARISON: Chest x-ray 02/14/[address] 04/22/2017 HISTORY: Weakness, fall, stage IV carcinoma TECHNIQUE: Single frontal view of the chest is obtained. FINDINGS: Prominent lung volumes are compatible with underlying COPD. The heart is small. Patient is post median sternotomy. Question soft tissue mass in the right lower lobe. Right upper lobe nodule s een on prior CT is not seen with certainty. Possible scarring or atelectasis in the right upper lobe. Patient is rotated. No pneumothorax or pleural effusion. Ascending aorta is aneurysmal. IMPRESSION: Chest CT could be performed for better evaluation for possible lung metastasis. Ascendin g aortic aneurysm. Emphysema. Postop changes.
[2017-07-27] MEDS ORDERED: NALOXONE 0.4 MG/ML 1 ML VIAL IV PRN (17:51)
[2017-07-27] MEDS ORDERED: ONDANSETRON 4 MG/2 ML VIAL IVP PRN (17:51)
[2017-07-27] MEDS ORDERED: ALPRAZolam 1 MG TAB PO PRN (17:56)
[2017-07-27] MEDS ORDERED: ONDANSETRON 4 MG TAB PO PRN (17:56)
[2017-07-27] MEDS: LORazepam 2 MG/ML INJ IV PRN (18:59)
[2017-07-27] MEDS: FLUoxetine HCL 20 MG CAP PO SCH (21:11)
[2017-07-27] MEDS: MORPHINE SULFATE ER 15 MG TABLET PO SCH (21:12)
[2017-07-28] MEDS: LEVOTHYROXINE 25 MCG TAB PO SCH (06:11)
[2017-07-28] MEDS: MORPHINE SULFATE ER 15 MG TABLET PO SCH ×2 (08:48→21:08)
[2017-07-28] MEDS: PANTOPRAZOLE 40 MG/10 ML VIAL IV SCH (08:53)
[2017-07-28] MEDS: ENOXAPARIN 40 MG/0.4 ML SYRINGE SQ SCH (08:53)
[2017-07-28] MEDS ORDERED: POLYETHYLENE GLYCOL 3350 17 GM POWD.PACK PO SCH (09:00)
[2017-07-28 09:33] VITALS: BMI 16.2
[2017-07-28] MEDS: FLUoxetine HCL 20 MG CAP PO SCH ×2 (12:10→21:09)
[2017-07-28] MEDS: HYDROmorphone 0.5 MG/0.5 ML SYRINGE IVP PRN ×4 (12:14→22:46)
--- NOTE | 2017-07-28 19:12 | HP ---
HISTORY AND PHYSICAL DATE OF SERVICE: 07/28/2017. CHIEF COMPLAINT: Fall with possible broken leg. BRIEF HISTORY ON THIS PATIENT: A 62-year-old male patient who presents to ED after he had a fall with severe right leg pain. According to the patient, he was walking when he felt dizzy and fell on the ground on the right side and twisted his right leg underneath it, causing injury to the leg with severe pain just above right knee. The patient presented to the ED. He was given 100 mcg of fentanyl with some relief. X-rays were done, which showed right femoral fracture. Patient does have a past medical history of cancer of throat/nasopharyngeal region, where he has gone for radiation therapy and is currently on chemo. PAST MEDICAL HISTORY: Significant for: 1. Coronary artery disease. 2. COPD. 3. Hypertension. 4. 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 5. Hiatal hernia. 6. Chronic back pain. PAST SURGICAL HISTORY: Significant for: 1. Cardiac valve replacement and heart catheterization. 2. Tonsillectomy. 3. Carpal tunnel release surgery and Dupuytren contractures. 4. EGD. 5. Colonoscopy. Past psychological history is significant for anxiety and depression. SOCIAL HISTORY: Patient does have history of marijuana use. He is a former smoker. No history of IV drug abuse. FAMILY HISTORY: Significant for coronary artery disease, hyperlipidemia, and coronary artery bypass grafting in father. History of hypertension and cardiomyopathy in mother. He is allergic to AMIODARONE. MEDICATIONS: The patient is on: 1. Prozac 40 mg p.o. b.i.d. 2. Xanax 1 mg p.o. daily p.r.n. 3. Levothyroxine 25 mcg daily. 4. MS Contin 15 mg p.o. q.12 hours p.r.n. 5. Zofran 8 mg p.o. b.i.d. 6. MiraLAX 17 g p.o. q.48 hours. 7. Senokot 8.6 mg p.o. q.48 hours. REVIEW OF SYSTEMS: Patient does have some recent weight and appetite loss. HEENT: No hearing or hearing loss or deafness. RESPIRATORY: No shortness of breath or cough or sputum production. CARDIOVASCULAR: No chest pain or palpitations. GI/ABDOMEN: No nausea, vomiting, diarrhea. GENITOURINARY: No hematuria. No dysuria. MUSCULOSKELETAL: No deformity or swelling of muscles and joints. CENTRAL NERVOUS SYSTEM: No dizziness or lightheadedness and no focal deficit. SKIN: Without rashes or pigmentation. HEMATOLOGICAL: No bleeding or coagulation disorders. ENDOCRINE: No polyuria, polydipsia. Rest of the 14-point review of systems is unremarkable. PHYSICAL EXAMINATION: Patient is a is alert. He is cachectic and malnourished. VITAL SIGNS: Temperature 96.9, pulse 85, respiration 21, O2 saturation 95%, blood pressure 118/65. HEENT: Atraumatic, normocephalic. Pupils equal and reactive to light. Extraocular movements intact. Buccal mucosa is fair. NECK: Neck is supple. No goiter or lymphadenopathy. No carotid bruit heard. CARDIOVASCULAR: Heart is regular rate and rhythm without any murmurs, gallop rhythm. LUNGS/CHEST: Patient has no rales, rhonchi or wheezes. Fair air entry. ABDOMEN: Soft, nontender, nondistended. Bowel sounds positive. Note that patient does have PEG tube in place. EXTREMITIES: The patient has tenderness to palpation to right distal femur. No tenderness over right hip or right knee. Range of motion is impaired on the right side. NEUROLOGICAL: Patient is awake, alert, oriented x3. No gross motor or sensory deficit. Skin has no abrasions or ecchymosis. PSYCHIATRIC: The patient is awake, alert, oriented x3 with appropriate behavior. LABS: CBC: White blood count 24.2, hemoglobin 8.6, hematocrit 27.7, platelet count of 994. Chemical profile: Sodium 134, potassium 4.4, chloride 95, bicarb 28, BUN 23, creatinine 0.6, and glucose 128. X-ray shows right closed femoral fracture. ASSESSMENT: 1. Fall with right femoral fracture. 2. Adult failure to thrive. 3. Leukocytosis with anemia and thrombocytosis. 4. Protein-calorie malnutrition. 5. Nasopharyngeal cancer with bone metastasis and pathological fracture. The patient was admitted to the general medical floor. Patient is to be given supportive treatment currently. The patient and the family are planning to sign up with hospice care. Will continue. Patient was discussed by the emergency room physician with the patient's oncologist at [facility], Dr. De Oliveira, according to which the patient is not responding very well to current treatment and the patient is strongly recommended to hospice care, as indicated above. The patient and family are agreeable to hospice care. We will consult hospice. Will continue with the supportive care, resume home medications and refills and we will admit to hospice for pain and symptom management once the family and the patient sign up with them. SANYA / PAVAN: [id number] /
[2017-07-28] MEDS: LORazepam 2 MG/ML INJ IV PRN (22:16)
[2017-07-29] MEDS ORDERED: HALOPERIDOL LACTATE 5 MG/ML 1 ML VIAL IM STA (01:04)
[2017-07-29] MEDS: HYDROmorphone 0.5 MG/0.5 ML SYRINGE IVP PRN (03:05)
[2017-07-29] MEDS ORDERED: ALPRAZolam 0.5 MG TAB PO PRN (03:06)
[2017-07-29] MEDS ORDERED: MORPHINE ORAL SOLN 10 MG/5 ML CUP PO PRN (05:27)
[2017-07-29] MEDS: LEVOTHYROXINE 25 MCG TAB PO SCH (05:50)
[2017-07-29 07:50] VITALS: BP 113/77; PULSE 111; RESP 20; TEMP 97.4
[2017-07-29] MEDS ORDERED: SENNOSIDES 8.6 MG TAB PO SCH (09:00)
[2017-07-29] MEDS: ENOXAPARIN 40 MG/0.4 ML SYRINGE SQ SCH (09:06)
[2017-07-29] MEDS: FLUoxetine HCL 20 MG CAP PO SCH (09:06)
[2017-07-29] MEDS: MORPHINE SULFATE ER 15 MG TABLET PO SCH (09:06)
[2017-07-29] MEDS: PANTOPRAZOLE 40 MG/10 ML VIAL IV SCH (09:07)
--- NOTE | 2017-09-10 18:13 | P.DS ---
Providers Date of admission: 07/27/17 17:51 Attending physician: Sarath Londono Primary care physician: Nicolle Thorpe [facility] Course: This 62-year-old white male presents with a complaint of a fall and right leg pain. He states that he was walking when he felt very dizzy, fell to the ground , and injured his right leg. He is complaining of pain just proximal to the right knee. He does present via EMS and received 100 g of fentanyl prior to arrival with some mild relief. He has some pain into his knee and very slight pain into his right hip. He denies any other injuries. He states that he did not hit his head, suffer any neck injuries, or have any back pain. He is a cancer patient. He apparently has cancer of his throat nasopharyngeal region. He is undergone radiation therapy and is currently on chemotherapy. He denies any known bony metastases. He denies any chest pain, abdominal pain or shortness of breath. No fever or chills. No other complaints or modifying factors. He still rates his pain at approximately 7 of 10 in severity. Patient was admitted to general medical floor with right femoral fracture; adult failure to thrive; protein calorie malnutrition and nasopharyngeal cancer with bone metastases and pathological fractures; patient had been following oncology asked [facility] and accordingly patient was not responding very well to current treatment and was strongly recommended hospice care; this was discussed with the patient and family and they agreed; patient was then admitted to hospice and discharge for pain and symptom management Patient Condition at Discharge: Critical Plan - Discharge Summary Discharge Rx Participant: No New Discharge Prescriptions: No Action FLUoxetine HCL [PROzac] 40 mg PO BID Sennosides [Senokot] 8.6 mg PO Q48H Polyethylene Glycol 3350 [Miralax] 17 gm PO Q48H Morphine Sulfate [Ms Contin] 15 mg PO Q12HR Ondansetron HCl [Zofran] 8 mg PO BID PRN PRN Reason: Nausea Levothyroxine Sodium [Synthroid] 25 mcg PO DAILY ALPRAZolam [Xanax] 1 mg PO DAILY PRN PRN Reason: Anxiety Discharge Medication List FLUoxetine HCL [PROzac] 40 mg PO BID 04/21/17 [History] ALPRAZolam [Xanax] 1 mg PO DAILY PRN 07/27/17 [History] Levothyroxine Sodium [Synthroid] 25 mcg PO DAILY 07/27/17 [History] Morphine Sulfate [Ms Contin] 15 mg PO Q12HR 07/27/17 [History] Ondansetron HCl [Zofran] 8 mg PO BID PRN 07/27/17 [History] Polyethylene Glycol 3350 [Miralax] 17 gm PO Q48H 07/27/17 [History] Sennosides [Senokot] 8.6 mg PO Q48H 07/27/17 [History] Follow up Appointment(s)/Referral(s): Nicolle Daly DO [Primary Care Provider] - 1-2 days Discharge Disposition: DISCH TO HOSPICE [facility]
== END 2017-07-29 09:34 | disposition hospice, inpatient (51) | DRG 543 ==
LOC: EC 14:06 → 5ONC 17:51
PROVIDERS: ADMIT Internal Medicine; ATTEND Internal Medicine
DX: M84.551A Pathological fracture in neoplastic disease, right femur, initial encounter for fracture (principal); C79.51 Secondary malignant neoplasm of bone; E46 Unspecified protein-calorie malnutrition; D64.9 Anemia, unspecified; D47.3 Essential (hemorrhagic) thrombocythemia; R62.7 Adult failure to thrive; Z66 Do not resuscitate; Z51.5 Encounter for palliative care; I25.10 Atherosclerotic heart disease of native coronary artery without angina pectoris; D72.829 Elevated white blood cell count, unspecified; E78.5 Hyperlipidemia, unspecified; I10 Essential (primary) hypertension; F41.9 Anxiety disorder, unspecified; F32.9 Major depressive disorder, single episode, unspecified; K44.9 Diaphragmatic hernia without obstruction or gangrene; J44.9 Chronic obstructive pulmonary disease, unspecified; G89.29 Other chronic pain; M54.9 Dorsalgia, unspecified; Z79.891 Long term (current) use of opiate analgesic; Z79.899 Other long term (current) drug therapy; Z85.819 Personal history of malignant neoplasm of unspecified site of lip, oral cavity, and pharynx; Z87.891 Personal history of nicotine dependence; Z92.3 Personal history of irradiation; Z92.21 Personal history of antineoplastic chemotherapy; Z95.2 Presence of prosthetic heart valve; Z88.8 Allergy status to other drugs, medicaments and biological substances; W19.XXXA Unspecified fall, initial encounter; Y93.01 Activity, walking, marching and hiking
CPT/HCPCS: 29505; 36415; 71045; 72170; 80053; 85025; 93005; 96361; 96374; 96375; 96376; 99285

== ENCOUNTER 2017-07-29 09:43 | Inpatient (IN) | payer MEDICAID ==
[2017-07-29] MEDS ORDERED: ATROPINE OPHTH SOLN 1% 5ML BTL SUBLINGUAL PRN (09:49)
[2017-07-29] MEDS ORDERED: ACETAMINOPHEN SUPPOSITORY 650 MG SUPP RECTAL PRN (09:49)
[2017-07-29] MEDS ORDERED: SODIUM CHLORIDE 0.9% 1,000 ML IV SCH (10:00)
[2017-07-29] MEDS ORDERED: SCOPOLAMINE 1.5MG/72HR PATCH TRANSDERM SCH (10:00)
[2017-07-29] MEDS: MORPHINE SULFATE (100 MG/2 ML) 100 MG in SODIUM CHLORIDE 0.9% 100 ML IV SCH (10:16)
[2017-07-29] MEDS: MORPHINE SULFATE 4 MG/ML SYRINGE IV PRN ×4 (10:21→19:29)
[2017-07-29 12:39] VITALS: BMI 16.2
[2017-07-29] MEDS: LORazepam 2 MG/ML INJ IV PRN ×2 (12:43→20:50)
[2017-07-29 20:55] VITALS: PULSE 65
[2017-07-29 22:47] VITALS: TEMP 99.1
[2017-07-30] MEDS: MORPHINE SULFATE (100 MG/2 ML) 100 MG in SODIUM CHLORIDE 0.9% 100 ML IV SCH (00:41)
[2017-07-30] MEDS: LORazepam 2 MG/ML INJ IV PRN (04:25)
== END 2017-07-30 05:50 | disposition expired | DRG 543 ==
LOC: 5ONC 09:43
PROVIDERS: ADMIT Hospitalist; ATTEND Hospitalist
DX: M84.551A Pathological fracture in neoplastic disease, right femur, initial encounter for fracture (principal); C79.51 Secondary malignant neoplasm of bone; C79.31 Secondary malignant neoplasm of brain; E46 Unspecified protein-calorie malnutrition; C11.9 Malignant neoplasm of nasopharynx, unspecified; R62.7 Adult failure to thrive; I25.10 Atherosclerotic heart disease of native coronary artery without angina pectoris; J44.9 Chronic obstructive pulmonary disease, unspecified; I10 Essential (primary) hypertension; G89.29 Other chronic pain; Z87.891 Personal history of nicotine dependence; Z82.49 Family history of ischemic heart disease and other diseases of the circulatory system; Z88.8 Allergy status to other drugs, medicaments and biological substances; Z79.899 Other long term (current) drug therapy